=== PATIENT | female | born 1950 | race Caucasian/White ===

== ENCOUNTER 2017-05-09 10:04 | Outpatient (CLI) | payer MEDICARE, OTHER ==
[2017-05-09 11:21] LABS: ALT (SGPT) 14 U/L (8-55); AST (SGOT) 27 U/L (5-34); Albumin 3.9 g/dL (3.4-4.8); Alkaline Phosphatase 71 U/L (40-150); Anion Gap 16 mmol/L (10-20); BUN (Urea Nitrogen) 14 mg/dL (9.8-20.1); Bilirubin, Total Less than 0.3 mg/dL (0.2-1.2); Calc. Creatinine Clearance 0 mL/min (70-130); Calcium 8.9 mg/dL (7.8-10.44); Carbon Dioxide 28 mmol/L (23-31); Cardiac Risk 3.2 (Less than 4.5); Chloride 97 mmol/L (98-107); Cholesterol 182 mg/dl (< 200 Desired); Estimated GFR-MDRD 53; Globulin 3.3 g/dL (2.4-3.5); Glucose 103 mg/dL (80-115); HDL Cholesterol 57 mg/dL (>60 Neg Risk); LDL Cholesterol, Calculated 105 mg/dL; Potassium 4.7 mmol/L (3.5-5.1); Protein, Total 7.2 g/dL (6.0-8.3); Sodium 136 mmol/L (136-145); Triglycerides 98 mg/dL (Less than 150)
[2017-05-09 11:30] LABS: #Basophils 0.2 thou/uL (0.0-0.2); #Eosinphils 0.1 thou/uL (0.0-0.7); #Lymphocytes 1.5 thou/uL (1.20-3.40); #Monocytes 0.7 thou/uL (0.11-0.59); #Neutrophils 5.8 thou/uL (1.40-6.50); %Basophils 2.4 % (0.0-1.0); %Eosinophils 1.1 % (0.0-10.0); %Lymphocytes 18.1 % (21.0-51.0); %Monocytes 8.2 % (0.0-10.0); %Neutrophils 70.2 % (42.0-75.0); Hemoglobin 9.2 g/dL (12.0-16.0); Mean Corpuscular HGB CONC 31.4 g/dL (32.0-36.0); Mean Corpuscular Hemoglobin 26.4 pg (27.0-31.0); Mean Corpuscular Volume 84.1 fl (81.0-99.0); Platelet Count 392 thou/uL (130-400); RBC Distribution Width 17.1 % (11.5-14.5); Red Blood Cell (RBC) Count 3.49 mill/uL (4.20-5.40); White Blood Cell (WBC) Count 8.3 thou/uL (4.8-10.8)
== END 2017-05-09 10:05 ==
LOC: MADLABBHPM 10:04
PROVIDERS: ATTEND Family Medicine
DX: I10 Essential (primary) hypertension (principal)
CPT/HCPCS: 36415; 80053; 80061; 85025

== ENCOUNTER 2017-06-17 13:37 | Emergency (ER) | payer MEDICARE, MEDICAID ==
[2017-06-17] MEDS ORDERED: Sterile Water 10 ML ONE (14:50)
[2017-06-17] MEDS ORDERED: methylPREDNISolone Sod Succ/PF 125 MG/2 ML VIAL ONE (14:50)
[2017-06-17] MEDS ORDERED: Dexamethasone 10 MG/ML VIAL ONE (14:50)
[2017-06-17] MEDS ORDERED: Ketorolac Tromethamine 30 MG/ML VIAL ONE (14:50)
[2017-06-17 15:43] LABS: #Basophils 0.1 thou/uL (0.0-0.2); #Eosinphils 0.1 thou/uL (0.0-0.7); #Lymphocytes 1.1 thou/uL (1.20-3.40); #Monocytes 0.8 thou/uL (0.11-0.59); #Neutrophils 6.2 thou/uL (1.40-6.50); %Basophils 0.9 % (0.0-1.0); %Eosinophils 0.6 % (0.0-10.0); %Lymphocytes 13.3 % (21.0-51.0); %Neutrophils 75.2 % (42.0-75.0); Anisocytosis SLIGHT = 6-15 cells (100X) (0-5/hpf); Hemoglobin 8.1 g/dL (12.0-16.0); MDiff Complete? YES; Mean Corpuscular HGB CONC 29.6 g/dL (32.0-36.0); Mean Corpuscular Hemoglobin 23.6 pg (27.0-31.0); Mean Corpuscular Volume 79.6 fl (81.0-99.0); Mean Platelet Volume 6.7 fL (7.4-10.4); Platelet Count 432 thou/uL (130-400); RBC Distribution Width 17.8 % (11.5-14.5); Red Blood Cell (RBC) Count 3.44 mill/uL (4.20-5.40); White Blood Cell (WBC) Count 8.3 thou/uL (4.8-10.8)
[2017-06-17 15:53] LABS: ALT (SGPT) 30 U/L (8-55); AST (SGOT) 44 U/L (5-34); Albumin 3.7 g/dL (3.4-4.8); Alkaline Phosphatase 96 U/L (40-150); Anion Gap 15 mmol/L (10-20); BUN (Urea Nitrogen) 11 mg/dL (9.8-20.1); Bilirubin, Total 0.3 mg/dL (0.2-1.2); Calc. Creatinine Clearance 0 mL/min (70-130); Calcium 8.8 mg/dL (7.8-10.44); Carbon Dioxide 29 mmol/L (23-31); Chloride 92 mmol/L (98-107); Estimated GFR-MDRD 52; Globulin 3.4 g/dL (2.4-3.5); Glucose 112 mg/dL (80-115); Potassium 4.1 mmol/L (3.5-5.1); Protein, Total 7.1 g/dL (6.0-8.3); Sodium 132 mmol/L (136-145)
[2017-06-17] MEDS ORDERED: Furosemide 40 MG/4 ML VIAL ONE (17:09)
--- NOTE | 2017-06-17 17:14 | RAD ---
FRONTAL RADIOGRAPH CHEST FOUR VIEWS RIGHT RIBS: Date: 06-17-17 Comparison: 09-27-16 History: Fall, right sided pain. FINDINGS: There is corticated contour irregularity involving the right humeral neck at the base of the right h umeral head suggesting a healed fracture. Clinical correlation required. Frontal imaging demonstrate s no pneumothorax, lobar consolidation, or alveolar edema. Blunting of the costophrenic angle sugges ts bilateral small pleural effusions and/or pleural thickening, right greater than left. Four views of the right ribs are limited secondary to respiratory motion artifact. There is an age i ndeterminate lateral right sided 9th rib fracture, felt to most likely be old. Similar age indetermi jacki lateral right sided 7th rib fracture seen. IMPRESSION: Age indeterminate, possibly chronic lateral right sided 7th and 9th rib fractures. Subtle acute frac tures cannot be fully excluded. No pneumothorax is seen. Small bilateral pleural effusions are suspe cted, right greater than left. POS: [facility]
[2017-06-17 18:18] LABS: INR-International Normal Ratio 1.2; Prothrombin Time 15.6 SEC (12.0-14.7)
[2017-06-17 18:19] LABS: PTT 30.4 SEC (22.9-36.1)
[2017-06-17 18:41] LABS: CKMB 4.9 ng/mL (0-6.6)
== END 2017-06-17 21:23 | disposition short-term general hospital (02) ==
LOC: MERGE 13:37 → MADERS 13:37
DX: I11.0 Hypertensive heart disease with heart failure (principal); I50.9 Heart failure, unspecified; J44.9 Chronic obstructive pulmonary disease, unspecified; E78.4 Other hyperlipidemia; F41.9 Anxiety disorder, unspecified; F17.210 Nicotine dependence, cigarettes, uncomplicated; Z79.82 Long term (current) use of aspirin; Z79.899 Other long term (current) drug therapy; Z86.73 Personal history of transient ischemic attack (TIA), and cerebral infarction without residual deficits
CPT/HCPCS: 36415; 51702; 80053; 82553; 83880; 84484; 85025; 85610; 85730; 93005; 94640; 94760; 96374; 96375; A4216; J1100; J1885; J1940; J2930; J7620

== ENCOUNTER 2018-03-27 08:17 | Outpatient (CLI) | payer MEDICARE, MEDICAID ==
[2018-03-27 09:39] LABS: #Basophils 0.1 thou/uL (0.0-0.2); #Eosinphils 0.1 thou/uL (0.0-0.7); #Lymphocytes 1.8 thou/uL (1.20-3.40); #Monocytes 1.2 thou/uL (0.11-0.59); #Neutrophils 7.6 thou/uL (1.40-6.50); %Basophils 1.1 % (0.0-1.0); %Eosinophils 0.9 % (0.0-10.0); %Lymphocytes 16.5 % (21.0-51.0); %Monocytes 11.5 % (0.0-10.0); %Neutrophils 70.1 % (42.0-75.0); Hemoglobin 8.3 g/dL (12.0-16.0); Mean Corpuscular HGB CONC 29.7 g/dL (32.0-36.0); Mean Corpuscular Hemoglobin 24.5 pg (27.0-31.0); Mean Corpuscular Volume 82.5 fl (81.0-99.0); Mean Platelet Volume 6.4 fL (7.4-10.4); Platelet Count 418 thou/uL (130-400); RBC Distribution Width 15.8 % (11.5-14.5); Red Blood Cell (RBC) Count 3.39 mill/uL (4.20-5.40); White Blood Cell (WBC) Count 10.8 thou/uL (4.8-10.8)
[2018-03-27 09:48] LABS: Anion Gap 16 mmol/L (10-20); BUN (Urea Nitrogen) 26 mg/dL (9.8-20.1); Calc. Creatinine Clearance 0 mL/min (70-130); Calcium 9.2 mg/dL (7.8-10.44); Carbon Dioxide 27 mmol/L (23-31); Cardiac Risk 2.1 (Less than 4.5); Chloride 95 mmol/L (98-107); Cholesterol 163 mg/dl (< 200 Desired); Estimated GFR-MDRD 32; Glucose 103 mg/dL (80-115); HDL Cholesterol 76 mg/dL (>60 Neg Risk); LDL Cholesterol, Calculated 76 mg/dL; Potassium 4.6 mmol/L (3.5-5.1); Sodium 133 mmol/L (136-145); Triglycerides 53 mg/dL (Less than 150)
[2018-03-27 10:13] LABS: Anisocytosis MODERATE=16-30 cells (100X) (0-5/hpf); Hypochromia SLIGHT = 6-15 cells (100X) (0-5/hpf)
[2018-03-27 10:17] LABS: PLT Morphology Comment Appears Adequate
== END 2018-03-27 08:18 | disposition home or self-care (01) ==
LOC: MADLABBHPM 08:17
PROVIDERS: ATTEND Family Medicine
DX: E78.5 Hyperlipidemia, unspecified (principal); N28.9 Disorder of kidney and ureter, unspecified; D63.8 Anemia in other chronic diseases classified elsewhere; F17.200 Nicotine dependence, unspecified, uncomplicated
CPT/HCPCS: 36415; 80048; 80061; 85025

== ENCOUNTER 2019-09-18 16:38 | Emergency (ER) | payer MEDICARE, MEDICAID ==
[2019-09-18] MEDS ORDERED: Sodium Chloride 0.9% 500 ML ONE (17:02)
[2019-09-18 17:14] LABS: #Basophils 0.1 thou/uL (0.0-0.2); #Eosinphils 0.1 thou/uL (0.0-0.7); #Lymphocytes 1.8 thou/uL (1.20-3.40); #Monocytes 1.2 thou/uL (0.11-0.59); #Neutrophils 5.9 thou/uL (1.40-6.50); %Lymphocytes 19.6 % (21.0-51.0); %Neutrophils 65.5 % (42.0-75.0); Hemoglobin 10.1 g/dL (12.0-16.0); Mean Corpuscular Hemoglobin 29.2 pg (27.0-31.0); Mean Corpuscular Volume 100.6 fL (78.0-98.0); Mean Platelet Volume 7.6 fL (7.4-10.4); Platelet Count 324 thou/uL (130-400); Red Blood Cell (RBC) Count 3.45 mill/uL (4.20-5.40)
[2019-09-18 17:19] LABS: INR-International Normal Ratio 0.8; PTT 27.6 SEC (22.9-36.1); Prothrombin Time 11.5 SEC (12.0-14.7)
[2019-09-18 17:28] LABS: ALT (SGPT) 16 U/L (8-55); AST (SGOT) 25 U/L (5-34); Albumin 4.4 g/dL (3.4-4.8); Alkaline Phosphatase 60 U/L (40-110); Anion Gap 20 mmol/L (10-20); BUN (Urea Nitrogen) 34 mg/dL (9.8-20.1); Bilirubin, Total 0.2 mg/dL (0.2-1.2); Calc. Creatinine Clearance 0 mL/min (70-130); Calcium 9.8 mg/dL (7.8-10.44); Carbon Dioxide 34 mmol/L (23-31); Chloride 91 mmol/L (98-107); Estimated GFR-MDRD 33; Globulin 2.6 g/dL (2.4-3.5); Glucose 91 mg/dL (83-110); Potassium 5.3 mmol/L (3.5-5.1); Sodium 140 mmol/L (136-145)
--- NOTE | 2019-09-18 17:34 | RAD ---
EXAM: CHEST ONE VIEW HISTORY: Atrial fibrillation with RVR. COMPARISON: 06/17/2017 FINDINGS: Cardiac silhouette is magnified by projection. Pulmonary vasculature is within normal limits. Hazy de nsity is seen at the left lung base probably related to overlying soft tissue density. The pleural-based density at the right lung base on the prior study is not seen on today's exam. No conso lidation is seen. Vascular calcifications are again seen in the thoracic aorta. Remote fracture involving the right proximal humerus is seen. IMPRESSION: No acute cardiopulmonary process.
== END 2019-09-18 18:23 | disposition short-term general hospital (02) ==
LOC: MADERS 16:38
DX: I48.91 Unspecified atrial fibrillation (principal); I10 Essential (primary) hypertension; E78.5 Hyperlipidemia, unspecified; J44.9 Chronic obstructive pulmonary disease, unspecified; Z86.73 Personal history of transient ischemic attack (TIA), and cerebral infarction without residual deficits; D64.9 Anemia, unspecified; F41.9 Anxiety disorder, unspecified; F17.210 Nicotine dependence, cigarettes, uncomplicated; Z79.899 Other long term (current) drug therapy; Z79.82 Long term (current) use of aspirin; Z79.51 Long term (current) use of inhaled steroids
CPT/HCPCS: 71045; 80053; 83880; 84443; 84484; 85025; 85610; 85730; 93005; 96361; 96374; J7050

== ENCOUNTER 2019-10-07 16:16 | Inpatient (IN) | payer MEDICARE, OTHER ==
[2019-10-07] MEDS ORDERED: Albuterol Sulfate 1.25 MG/3 ML NEB NEB PRN (17:47)
[2019-10-07] MEDS ORDERED: Acetaminophen 325 MG TAB PO PRN (17:47)
[2019-10-07] MEDS: Atorvastatin Calcium 10 MG TAB PO SCH (20:31)
[2019-10-07] MEDS: Mometasone/Formoterol 60 PUFF AER INH SCH (20:31)
[2019-10-07] MEDS: Magnesium Oxide 400 MG TAB PO SCH (20:31)
[2019-10-08 05:34] LABS: Hemoglobin 7.4 g/dL (12.0-16.0); Platelet Count 336 thou/uL (130-400)
[2019-10-08] MEDS: Aspirin 81 mg Enteric Coated Tablet PO SCH (08:28)
[2019-10-08] MEDS: Dronedarone HCl 400 MG TAB PO SCH ×2 (08:28→17:05)
[2019-10-08] MEDS: Magnesium Oxide 400 MG TAB PO SCH ×2 (08:29→20:51)
[2019-10-08] MEDS: Gabapentin 300 MG CAP PO SCH (08:30)
[2019-10-08] MEDS: Mometasone/Formoterol 60 PUFF AER INH SCH ×2 (08:30→20:51)
[2019-10-08] MEDS ORDERED: Docusate 100 MG CAP PO PRN (13:09)
[2019-10-08] MEDS ORDERED: Rivaroxaban 10 MG TAB PO SCH (17:00)
[2019-10-08] MEDS: Ferrous Sulfate 325 MG TAB PO SCH (17:05)
--- NOTE | 2019-10-08 19:21 | HP ---
PRIMARY CARE PHYSICIAN: Gloria Forde MD HISTORY OF PRESENT ILLNESS: The patient is a 69-year-old female with history of COPD, on chronic O2; chronic atrial fibrillation; chronic kidney disease, stage 3; tobacco abuse; who was recently discharged from [facility] in [place], [place] for atrial fibrillation with rapid ventricular response. Regarding the patient's atrial fibrillation, this required cardioversion x2 as well as Multaq and anticoagulation with Xarelto. The patient was seen by both Cardiology and EP while in the hospital. The patient was cardioverted in the last approximately 48 hours prior to discharge. From a cardiac stand point, she remains stable prior to discharge. The patient's main complaint was profound generalized weakness and that continues to be the patient's main symptom currently. REVIEW OF SYMPTOMS: GENERAL: The patient reports generalized weakness. HEENT: The patient denies vision changes or eye pain. CARDIOVASCULAR: The patient denies chest pain or palpitations. RESPIRATORY: The patient reports shortness of breath with exertion. ABDOMEN: The patient denies nausea, vomiting, or diarrhea. GENITOURINARY: The patient denies dysuria or hematuria. MUSCULOSKELETAL: The patient denies muscle pain, but does report weakness. PSYCHIATRIC: The patient denies anxiety or depression. NEUROLOGIC: The patient reports occasional headache and occasional tremors. SKIN: The patient reports redness of right upper extremity. PAST MEDICAL HISTORY: 1. COPD. 2. Chronic atrial fibrillation. 3. Chronic diastolic heart failure. 4. Tobacco abuse. 5. Hypertension. 6. Hyperlipidemia. PAST SURGICAL HISTORY: 1. Bilateral carotid endarterectomy. 2. Tonsillectomy with adenoidectomy. 3. Bladder surgery. ALLERGIES: NO KNOWN DRUG ALLERGIES. SOCIAL HISTORY: She has a significant tobacco abuse history. Denies alcohol or drug use. FAMILY HISTORY: Significant for diabetes in her mother. MEDICATIONS: 1. Ventolin HFA one puff q.4 hours p.r.n. 2. Albuterol nebulization one neb every 6 hours p.r.n. 3. Advair 100/50 one inhalation b.i.d. 4. Pravastatin 40 mg p.o. nightly. 5. Zoloft 150 mg p.o. daily. 6. Acetaminophen 650 mg p.o. q.4 hours p.r.n. for pain. 7. Aspirin 81 mg p.o. daily. 8. Diltiazem 240 mg p.o. daily. 9. Multaq 400 mg p.o. b.i.d. 10. Gabapentin 300 mg p.o. daily. 11. DuoNeb 3 mL inhalation q.6 hours p.r.n. for shortness of breath. 12. Magnesium oxide 400 mg p.o. b.i.d. 13. Xarelto 15 mg daily. 14. Incruse Ellipta 62.5 mcg inhalation one puff daily. PHYSICAL EXAMINATION: VITAL SIGNS: Temperature 97.4, pulse 84, blood pressure 140/74, respirations 20 , oxygen saturation 90% on 3 L. GENERAL: The patient is alert and oriented x3, in no current distress. The patient is very frail and cachectic in appearance. HEENT: Extraocular muscles are intact. Conjunctivae and sclerae are clear. CARDIOVASCULAR: Irregularly irregular rhythm with normal rate. Normal S1 and S2. LUNGS: Diffusely diminished breath sounds on posterior lung cantu. Mild wheezes in anterior lung cantu heard. No use of accessory muscles of respiration. EXTREMITIES: No clubbing, cyanosis, or edema. NEUROLOGIC: Cranial nerves 2 through 12 are intact grossly. SKIN: Slightly warm. There is an approximately 7 cm area of increased warmth, induration on the anterior surface of the patient's right forearm with increased warmth. No fluctuance noted. LABORATORY STUDIES: Hemoglobin 7.4, hematocrit 24.8. ASSESSMENT AND PLAN: 1. Generalized weakness. The patient is [facility] for physical therapy and occupational therapy, which she will be getting daily as she is able to tolerate. 2. Chronic atrial fibrillation. Rate controlled. We will continue Xarelto at this time pending fecal occult blood testing. The patient has mildly worsening anemia that maybe related to gastrointestinal losses. Long discussion had with the patient regarding risks and benefits of continued anticoagulation treatment versus discontinuing anticoagulation. We will discuss further pending result of gastric occult blood testing. We will initiate followup with both Cardiology and assistant drafter. 3. Iron deficiency anemia, see above. We will also add on supplemental iron and Colace. 4. Chronic obstructive pulmonary disease. We will continue the patient's breathing treatments, and chronic supplemental oxygen restarted as well. 5. Chronic kidney disease, stage 3. This appears to be stable. We will continue to monitor. We will avoid nephrotoxic medications. 6. Right upper extremity superficial thrombophlebitis. We will continue anticoagulation. We will also add on ice packs to decrease inflammation. 7. Anxiety/depression. Continue the patient's Zoloft. Job ID: [id number] MTDD
[2019-10-08] MEDS: Atorvastatin Calcium 10 MG TAB PO SCH (20:51)
[2019-10-08] MEDS ORDERED: Mupirocin 2% Ointment 22 GM Tube TOP SCH (23:15)
[2019-10-09] MEDS: Aspirin 81 mg Enteric Coated Tablet PO SCH (08:39)
[2019-10-09] MEDS: Gabapentin 300 MG CAP PO SCH (08:39)
[2019-10-09] MEDS: Dronedarone HCl 400 MG TAB PO SCH ×2 (08:39→16:52)
[2019-10-09] MEDS: Magnesium Oxide 400 MG TAB PO SCH ×2 (08:39→20:41)
[2019-10-09] MEDS: Ferrous Sulfate 325 MG TAB PO SCH ×2 (08:39→16:51)
[2019-10-09] MEDS: Mupirocin 2% Ointment 22 GM Tube TOP SCH (08:40)
[2019-10-09] MEDS: Mometasone/Formoterol 60 PUFF AER INH SCH ×2 (08:40→20:41)
[2019-10-09] MEDS ORDERED: Mupirocin 2% Ointment 22 GM Tube TOP SCH (09:00)
[2019-10-09 13:32] LABS: Hemoglobin 7.6 g/dL (12.0-16.0); Platelet Count 329 thou/uL (130-400)
[2019-10-09] MEDS: Atorvastatin Calcium 10 MG TAB PO SCH (20:41)
[2019-10-10] MEDS: Dronedarone HCl 400 MG TAB PO SCH ×2 (08:19→16:31)
[2019-10-10] MEDS: Aspirin 81 mg Enteric Coated Tablet PO SCH (08:19)
[2019-10-10] MEDS: Gabapentin 300 MG CAP PO SCH (08:19)
[2019-10-10] MEDS: Ferrous Sulfate 325 MG TAB PO SCH ×2 (08:19→16:31)
[2019-10-10] MEDS: Magnesium Oxide 400 MG TAB PO SCH ×2 (08:19→20:20)
[2019-10-10] MEDS: Mometasone/Formoterol 60 PUFF AER INH SCH ×2 (08:20→20:21)
[2019-10-10] MEDS: Mupirocin 2% Ointment 22 GM Tube TOP SCH (08:20)
[2019-10-10] MEDS: Atorvastatin Calcium 10 MG TAB PO SCH (20:21)
[2019-10-11 05:41] LABS: Platelet Count 314 thou/uL (130-400)
[2019-10-11] MEDS: Ferrous Sulfate 325 MG TAB PO SCH ×2 (08:45→17:09)
[2019-10-11] MEDS: Dronedarone HCl 400 MG TAB PO SCH ×2 (08:46→17:09)
[2019-10-11] MEDS: Gabapentin 300 MG CAP PO SCH (08:47)
[2019-10-11] MEDS: Aspirin 81 mg Enteric Coated Tablet PO SCH (08:47)
[2019-10-11] MEDS: Magnesium Oxide 400 MG TAB PO SCH ×2 (08:48→21:20)
[2019-10-11] MEDS: Mometasone/Formoterol 60 PUFF AER INH SCH ×2 (08:53→21:20)
[2019-10-11] MEDS: Mupirocin 2% Ointment 22 GM Tube TOP SCH (08:53)
[2019-10-11 18:26] LABS: Bilirubin Negative (Negative); Blood, Urine Negative (Negative); Glucose, Urine (Dipstick) Negative (Negative); Leukocyte Trace (Negative); Nitrite Negative (Negative); Protein, Urine (Dipstick) Negative (Neg-Trace)
[2019-10-11 18:31] LABS: Clarity Hazy (Clear)
[2019-10-11 18:38] LABS: RBC/HPF 0-3 HPF (0-3)
[2019-10-11 18:39] LABS: Bacteria/HPF 3+ HPF (None Seen); Squamous Epithelial 0-3 HPF (0-3)
[2019-10-11] MEDS: Atorvastatin Calcium 10 MG TAB PO SCH (21:20)
[2019-10-12] MEDS: Magnesium Oxide 400 MG TAB PO SCH ×2 (08:18→21:04)
[2019-10-12] MEDS: Aspirin 81 mg Enteric Coated Tablet PO SCH (08:18)
[2019-10-12] MEDS: Gabapentin 300 MG CAP PO SCH (08:18)
[2019-10-12] MEDS: Dronedarone HCl 400 MG TAB PO SCH ×2 (08:26→17:01)
[2019-10-12] MEDS: Ferrous Sulfate 325 MG TAB PO SCH ×2 (08:26→17:01)
[2019-10-12] MEDS: Mometasone/Formoterol 60 PUFF AER INH SCH ×2 (08:27→21:04)
[2019-10-12] MEDS: Mupirocin 2% Ointment 22 GM Tube TOP SCH (08:28)
[2019-10-12] MEDS: Nitrofurantoin Macrocrystal 50 MG CAP PO SCH ×2 (08:35→21:04)
[2019-10-12] MEDS: Atorvastatin Calcium 10 MG TAB PO SCH (21:03)
[2019-10-13] MEDS: Ferrous Sulfate 325 MG TAB PO SCH ×2 (08:28→16:43)
[2019-10-13] MEDS: Dronedarone HCl 400 MG TAB PO SCH ×2 (08:28→16:43)
[2019-10-13] MEDS: Nitrofurantoin Macrocrystal 50 MG CAP PO SCH ×2 (08:28→20:43)
[2019-10-13] MEDS: Gabapentin 300 MG CAP PO SCH (08:28)
[2019-10-13] MEDS: Aspirin 81 mg Enteric Coated Tablet PO SCH (08:28)
[2019-10-13] MEDS: Magnesium Oxide 400 MG TAB PO SCH ×2 (08:28→20:44)
[2019-10-13] MEDS: Mupirocin 2% Ointment 22 GM Tube TOP SCH (08:29)
[2019-10-13] MEDS: Mometasone/Formoterol 60 PUFF AER INH SCH ×2 (08:29→20:43)
[2019-10-13] MEDS: Simethicone Chewable 80 MG TAB PO PRN (17:38)
[2019-10-13] MEDS: Atorvastatin Calcium 10 MG TAB PO SCH (20:44)
[2019-10-14] MEDS: Dronedarone HCl 400 MG TAB PO SCH ×2 (08:34→16:54)
[2019-10-14] MEDS: Mometasone/Formoterol 60 PUFF AER INH SCH ×2 (08:34→20:53)
[2019-10-14] MEDS: Mupirocin 2% Ointment 22 GM Tube TOP SCH (08:35)
[2019-10-14] MEDS: Aspirin 81 mg Enteric Coated Tablet PO SCH (08:35)
[2019-10-14] MEDS: Ferrous Sulfate 325 MG TAB PO SCH ×2 (08:35→16:54)
[2019-10-14] MEDS: Nitrofurantoin Macrocrystal 50 MG CAP PO SCH ×2 (08:35→20:55)
[2019-10-14] MEDS: Gabapentin 300 MG CAP PO SCH (08:35)
[2019-10-14] MEDS: Magnesium Oxide 400 MG TAB PO SCH ×2 (08:35→20:55)
[2019-10-14] MEDS: Atorvastatin Calcium 10 MG TAB PO SCH (20:55)
[2019-10-14] MEDS: Simethicone Chewable 80 MG TAB PO PRN (20:57)
[2019-10-15 08:22] LABS: Hemoglobin 7.7 g/dL (12.0-16.0)
[2019-10-15] MEDS: Nitrofurantoin Macrocrystal 50 MG CAP PO SCH ×2 (09:53→21:26)
[2019-10-15] MEDS: Dronedarone HCl 400 MG TAB PO SCH ×2 (09:55→18:21)
[2019-10-15] MEDS: Gabapentin 300 MG CAP PO SCH (09:55)
[2019-10-15] MEDS: Magnesium Oxide 400 MG TAB PO SCH ×2 (09:55→21:18)
[2019-10-15] MEDS: Aspirin 81 mg Enteric Coated Tablet PO SCH (09:55)
[2019-10-15] MEDS: Ferrous Sulfate 325 MG TAB PO SCH ×2 (09:55→18:21)
[2019-10-15] MEDS: Mometasone/Formoterol 60 PUFF AER INH SCH ×2 (09:55→21:18)
--- NOTE | 2019-10-15 13:45 | PRG ---
DATE OF SERVICE: 10/15/2019 PRIMARY DIAGNOSES: 1. Chronic atrial fibrillation. 2. Generalized weakness. 3. Chronic obstructive pulmonary disease. 4. Chronic hypoxic respiratory failure. 5. Chronic kidney disease, stage 3. 6. Iron deficiency anemia. 7. Tobacco abuse. 8. Hypertension. 9. Hyperlipidemia. 10. Chronic diastolic heart failure. 11. Urinary tract infection. The patient is a 69-year-old female with recent acute care discharge for atrial fibrillation. The patient was discharged to [facility] for rehab. The patient is undergoing physical therapy and occupational therapy in a routine fashion and was stable from a cardiopulmonary standpoint up until day of discharge when the patient complained of shortness of breath and lightheadedness shortly after coming back from rehab. The patient's pulse was noted to be in the 140s. Oxygen level at the time of initial evaluation by the patient's nurse was in the mid 80s; however, oxygen was not turned on at that time. Oxygen was then turned on and oxygen level darlene to 93% on 3 L, which is near the patient's baseline. At the time of my evaluation, the patient's oxygen level was in the 90s; however, pulse remained in the 120s to 140s. She denies shortness of breath, chest pain or palpitations, but did report continued lightheadedness. Xarelto was discontinued during the patient's hospitalization after an episode of PHYSICAL EXAMINATION: VITAL SIGNS: Blood pressure 110/57, oxygen 93% on 3.5 L, pulse 120s to 140s, respiratory rate 18. GENERAL: The patient is alert and oriented x3, in no distress at this time. HEENT: Extraocular muscles are intact. Conjunctivae and sclerae are clear. CARDIOVASCULAR: Irregularly irregular rate and rhythm with tachycardia. No murmurs, rubs, or gallops. LUNGS: Breath sounds diffusely diminished; however, it is stable compared to prior examinations. No use of accessory muscles noted. EXTREMITIES: No cyanosis, edema, or erythema. NEUROLOGIC: Cranial nerves 2 through 12 intact grossly. PSYCHIATRIC: Appropriate mood and affect. Assessment and Plan. 1. Atrial Fibrillation with Rapid Ventricular rate - will transfer to ED for further stabilization with possible transfer to [place] for cardiology consultation. 2. COPD - continue supplemental O2; inhalers/nebulized medications. 3. CKD stage III - stable. 4. Hypertension - stable; continue antihypertensive regimen. 5. UTI - resolved. MTDD
[2019-10-15] MEDS ORDERED: Albuterol Sulfate 1.25 MG/3 ML NEB NEB PRN (20:17)
[2019-10-15] MEDS ORDERED: Docusate 100 MG CAP PO PRN (20:19)
[2019-10-15] MEDS: Atorvastatin Calcium 10 MG TAB PO SCH (21:18)
[2019-10-15] MEDS ORDERED: Nitrofurantoin Macrocrystal 50 MG CAP PO SCH (21:30)
[2019-10-16] MEDS: Nitrofurantoin Macrocrystal 50 MG CAP PO SCH ×2 (08:43→20:03)
[2019-10-16] MEDS: Ferrous Sulfate 325 MG TAB PO SCH ×2 (08:43→16:51)
[2019-10-16] MEDS: Dronedarone HCl 400 MG TAB PO SCH ×2 (08:44→16:51)
[2019-10-16] MEDS: Magnesium Oxide 400 MG TAB PO SCH ×2 (08:44→20:04)
[2019-10-16] MEDS: Gabapentin 300 MG CAP PO SCH (08:44)
[2019-10-16] MEDS: Aspirin 81 mg Enteric Coated Tablet PO SCH (08:44)
[2019-10-16] MEDS: Mometasone/Formoterol 60 PUFF AER INH SCH ×2 (08:45→20:02)
[2019-10-16] MEDS: Mupirocin 2% Ointment 22 GM Tube TOP SCH (08:46)
[2019-10-16] MEDS ORDERED: Rivaroxaban 10 MG TAB PO SCH (17:00)
[2019-10-16] MEDS: Atorvastatin Calcium 10 MG TAB PO SCH (20:04)
[2019-10-17] MEDS: Mometasone/Formoterol 60 PUFF AER INH SCH ×2 (08:55→20:44)
[2019-10-17] MEDS: Aspirin 81 mg Enteric Coated Tablet PO SCH (08:57)
[2019-10-17] MEDS: Mupirocin 2% Ointment 22 GM Tube TOP SCH (08:57)
[2019-10-17] MEDS: Dronedarone HCl 400 MG TAB PO SCH ×2 (08:58→16:34)
[2019-10-17] MEDS: Magnesium Oxide 400 MG TAB PO SCH ×2 (08:58→20:44)
[2019-10-17] MEDS: Ferrous Sulfate 325 MG TAB PO SCH ×2 (08:58→16:34)
[2019-10-17] MEDS: Gabapentin 300 MG CAP PO SCH (08:58)
[2019-10-17] MEDS: Atorvastatin Calcium 10 MG TAB PO SCH (20:44)
[2019-10-18] MEDS: Mometasone/Formoterol 60 PUFF AER INH SCH ×2 (08:40→19:32)
[2019-10-18] MEDS: Magnesium Oxide 400 MG TAB PO SCH ×2 (08:41→20:48)
[2019-10-18] MEDS: Aspirin 81 mg Enteric Coated Tablet PO SCH (08:41)
[2019-10-18] MEDS: Dronedarone HCl 400 MG TAB PO SCH ×2 (08:42→16:36)
[2019-10-18] MEDS: Mupirocin 2% Ointment 22 GM Tube TOP SCH (08:42)
[2019-10-18] MEDS: Gabapentin 300 MG CAP PO SCH (08:42)
[2019-10-18] MEDS: Ferrous Sulfate 325 MG TAB PO SCH ×2 (08:42→16:36)
[2019-10-18] MEDS: Simethicone Chewable 80 MG TAB PO PRN (16:35)
[2019-10-18] MEDS: Atorvastatin Calcium 10 MG TAB PO SCH (20:47)
[2019-10-19] MEDS: Mometasone/Formoterol 60 PUFF AER INH SCH ×2 (07:32→20:05)
[2019-10-19] MEDS: Gabapentin 300 MG CAP PO SCH (08:33)
[2019-10-19] MEDS: Magnesium Oxide 400 MG TAB PO SCH ×2 (08:34→20:06)
[2019-10-19] MEDS: Aspirin 81 mg Enteric Coated Tablet PO SCH (08:34)
[2019-10-19] MEDS: Ferrous Sulfate 325 MG TAB PO SCH ×2 (08:34→17:09)
[2019-10-19] MEDS: Mupirocin 2% Ointment 22 GM Tube TOP SCH (08:35)
[2019-10-19] MEDS: Dronedarone HCl 400 MG TAB PO SCH ×2 (08:35→17:09)
[2019-10-19] MEDS: Atorvastatin Calcium 10 MG TAB PO SCH (20:06)
[2019-10-19] MEDS: Simethicone Chewable 80 MG TAB PO PRN (20:11)
[2019-10-20] MEDS: Mometasone/Formoterol 60 PUFF AER INH SCH ×2 (07:53→19:06)
[2019-10-20] MEDS: Dronedarone HCl 400 MG TAB PO SCH ×2 (08:57→16:51)
[2019-10-20] MEDS: Ferrous Sulfate 325 MG TAB PO SCH ×2 (08:59→16:51)
[2019-10-20] MEDS: Aspirin 81 mg Enteric Coated Tablet PO SCH (08:59)
[2019-10-20] MEDS: Gabapentin 300 MG CAP PO SCH (08:59)
[2019-10-20] MEDS: Magnesium Oxide 400 MG TAB PO SCH ×2 (08:59→20:16)
[2019-10-20] MEDS: Mupirocin 2% Ointment 22 GM Tube TOP SCH (08:59)
[2019-10-20] MEDS: Simethicone Chewable 80 MG TAB PO PRN (14:12)
[2019-10-20] MEDS: Atorvastatin Calcium 10 MG TAB PO SCH (20:16)
[2019-10-21] MEDS: Mometasone/Formoterol 60 PUFF AER INH SCH ×2 (07:41→20:30)
[2019-10-21] MEDS: Magnesium Oxide 400 MG TAB PO SCH ×2 (08:27→20:31)
[2019-10-21] MEDS: Ferrous Sulfate 325 MG TAB PO SCH ×2 (08:28→17:08)
[2019-10-21] MEDS: Gabapentin 300 MG CAP PO SCH (08:28)
[2019-10-21] MEDS: Aspirin 81 mg Enteric Coated Tablet PO SCH (08:28)
[2019-10-21] MEDS: Mupirocin 2% Ointment 22 GM Tube TOP SCH (08:29)
[2019-10-21] MEDS: Dronedarone HCl 400 MG TAB PO SCH ×2 (08:29→17:09)
[2019-10-21] MEDS: Atorvastatin Calcium 10 MG TAB PO SCH (20:31)
[2019-10-21] MEDS: Simethicone Chewable 80 MG TAB PO PRN (20:35)
[2019-10-22 05:23] LABS: Hemoglobin 7.7 g/dL (12.0-16.0)
[2019-10-22] MEDS: Mometasone/Formoterol 60 PUFF AER INH SCH ×2 (07:30→19:04)
[2019-10-22] MEDS: Aspirin 81 mg Enteric Coated Tablet PO SCH (08:36)
[2019-10-22] MEDS: Magnesium Oxide 400 MG TAB PO SCH ×2 (08:36→20:18)
[2019-10-22] MEDS: Ferrous Sulfate 325 MG TAB PO SCH ×2 (08:36→17:02)
[2019-10-22] MEDS: Dronedarone HCl 400 MG TAB PO SCH ×2 (08:36→17:02)
[2019-10-22] MEDS: Gabapentin 300 MG CAP PO SCH (08:36)
[2019-10-22] MEDS ORDERED: Furosemide 40 MG/4 ML VIAL SLOW IVP SCH (13:30)
[2019-10-22] MEDS ORDERED: Furosemide 40 MG/4 ML VIAL IVP SCH (14:15)
[2019-10-22] MEDS: Atorvastatin Calcium 10 MG TAB PO SCH (20:18)
[2019-10-23 05:34] LABS: Hemoglobin 9.1 g/dL (12.0-16.0)
[2019-10-23] MEDS: Mometasone/Formoterol 60 PUFF AER INH SCH ×2 (07:30→19:48)
[2019-10-23] MEDS: Gabapentin 300 MG CAP PO SCH (08:31)
[2019-10-23] MEDS: Ferrous Sulfate 325 MG TAB PO SCH ×2 (08:31→17:06)
[2019-10-23] MEDS: Aspirin 81 mg Enteric Coated Tablet PO SCH (08:31)
[2019-10-23] MEDS: Magnesium Oxide 400 MG TAB PO SCH ×2 (08:31→20:03)
[2019-10-23] MEDS: Dronedarone HCl 400 MG TAB PO SCH ×2 (08:32→17:06)
[2019-10-23] MEDS: Atorvastatin Calcium 10 MG TAB PO SCH (20:03)
[2019-10-24] MEDS: Mometasone/Formoterol 60 PUFF AER INH SCH ×2 (07:30→20:16)
[2019-10-24] MEDS: Gabapentin 300 MG CAP PO SCH (08:25)
[2019-10-24] MEDS: Aspirin 81 mg Enteric Coated Tablet PO SCH (08:25)
[2019-10-24] MEDS: Dronedarone HCl 400 MG TAB PO SCH ×2 (08:26→17:14)
[2019-10-24] MEDS: Ferrous Sulfate 325 MG TAB PO SCH ×2 (08:26→17:14)
[2019-10-24] MEDS: Magnesium Oxide 400 MG TAB PO SCH ×2 (08:26→20:18)
[2019-10-24] MEDS: Atorvastatin Calcium 10 MG TAB PO SCH (20:18)
[2019-10-25] MEDS: Ferrous Sulfate 325 MG TAB PO SCH ×2 (08:09→16:17)
[2019-10-25] MEDS: Dronedarone HCl 400 MG TAB PO SCH (08:09)
[2019-10-25] MEDS: Mometasone/Formoterol 60 PUFF AER INH SCH ×2 (08:09→21:28)
[2019-10-25] MEDS: Aspirin 81 mg Enteric Coated Tablet PO SCH (08:10)
[2019-10-25] MEDS: Magnesium Oxide 400 MG TAB PO SCH ×2 (08:12→21:27)
[2019-10-25] MEDS: Gabapentin 300 MG CAP PO SCH (08:12)
[2019-10-25] MEDS ORDERED: Digoxin 0.25 MG TAB PO SCH (15:15)
[2019-10-25] MEDS: Apixaban 5 MG TAB PO SCH (21:27)
[2019-10-25] MEDS: Atorvastatin Calcium 10 MG TAB PO SCH (21:27)
[2019-10-26] MEDS: Ferrous Sulfate 325 MG TAB PO SCH ×2 (08:19→17:41)
[2019-10-26] MEDS ORDERED: Digoxin 0.125 MG TAB PO SCH (09:00)
[2019-10-26] MEDS ORDERED: Digoxin 0.25 MG TAB PO SCH (09:00)
[2019-10-26] MEDS: Apixaban 5 MG TAB PO SCH ×2 (09:07→21:50)
[2019-10-26] MEDS: Aspirin 81 mg Enteric Coated Tablet PO SCH (09:08)
[2019-10-26] MEDS: Mometasone/Formoterol 60 PUFF AER INH SCH ×2 (09:12→21:47)
[2019-10-26] MEDS: Magnesium Oxide 400 MG TAB PO SCH ×2 (09:12→21:50)
[2019-10-26] MEDS: Gabapentin 300 MG CAP PO SCH (09:12)
[2019-10-26] MEDS: Atorvastatin Calcium 10 MG TAB PO SCH (21:50)
[2019-10-27] MEDS: Mometasone/Formoterol 60 PUFF AER INH SCH ×2 (07:30→21:04)
[2019-10-27] MEDS: Ferrous Sulfate 325 MG TAB PO SCH ×2 (08:16→17:11)
[2019-10-27] MEDS: Magnesium Oxide 400 MG TAB PO SCH ×2 (08:16→21:06)
[2019-10-27] MEDS: Apixaban 5 MG TAB PO SCH ×2 (08:16→21:05)
[2019-10-27] MEDS: Aspirin 81 mg Enteric Coated Tablet PO SCH (08:16)
[2019-10-27] MEDS: Gabapentin 300 MG CAP PO SCH (08:16)
[2019-10-27] MEDS: Digoxin 0.125 MG TAB PO SCH (08:17)
[2019-10-27] MEDS: Simethicone Chewable 80 MG TAB PO PRN (17:14)
[2019-10-27] MEDS: Atorvastatin Calcium 10 MG TAB PO SCH (21:06)
[2019-10-28] MEDS: Mometasone/Formoterol 60 PUFF AER INH SCH ×2 (08:17→21:28)
[2019-10-28] MEDS: Gabapentin 300 MG CAP PO SCH (08:18)
[2019-10-28] MEDS: Apixaban 5 MG TAB PO SCH ×2 (08:19→21:27)
[2019-10-28] MEDS: Digoxin 0.125 MG TAB PO SCH (08:19)
[2019-10-28] MEDS: Ferrous Sulfate 325 MG TAB PO SCH ×2 (08:19→17:05)
[2019-10-28] MEDS: Magnesium Oxide 400 MG TAB PO SCH ×2 (08:19→21:29)
[2019-10-28] MEDS: Aspirin 81 mg Enteric Coated Tablet PO SCH (08:19)
[2019-10-28] MEDS: Simethicone Chewable 80 MG TAB PO PRN ×2 (08:23→21:30)
[2019-10-28] MEDS: Acetaminophen 325 MG TAB PO PRN ×2 (08:23→21:29)
[2019-10-28 16:20] LABS: Bilirubin Negative (Negative); Blood, Urine Negative (Negative); Clarity Clear (Clear); Glucose, Urine (Dipstick) Negative (Negative); Leukocyte Negative (Negative); Nitrite Negative (Negative); Protein, Urine (Dipstick) Negative (Neg-Trace); Urine Culture Reflex No No; Urobilinogen 0.2 mg/dL (Less than 2)
[2019-10-28 16:35] LABS: Bacteria/HPF Rare-Few HPF (None Seen); RBC/HPF 0-3 HPF (0-3); Squamous Epithelial 0-3 HPF (0-3); WBC/HPF 0-3 HPF (0-3)
[2019-10-28] MEDS: Atorvastatin Calcium 10 MG TAB PO SCH (21:29)
[2019-10-29 05:58] LABS: Platelet Count 462 thou/uL (130-400)
[2019-10-29 07:31] VITALS: BP 127/59; TEMP 97.2
[2019-10-29] MEDS: Mometasone/Formoterol 60 PUFF AER INH SCH (08:54)
[2019-10-29] MEDS: Ferrous Sulfate 325 MG TAB PO SCH (08:56)
[2019-10-29] MEDS: Magnesium Oxide 400 MG TAB PO SCH (08:56)
[2019-10-29] MEDS: Apixaban 5 MG TAB PO SCH (08:56)
[2019-10-29] MEDS: Aspirin 81 mg Enteric Coated Tablet PO SCH (08:56)
[2019-10-29] MEDS: Gabapentin 300 MG CAP PO SCH (08:56)
[2019-10-29] MEDS: Digoxin 0.125 MG TAB PO SCH (08:57)
--- NOTE | 2019-10-30 12:36 | DIS ---
DATE OF ADMISSION: 10/07/2019 DATE OF DISCHARGE: 10/29/2019 PRIMARY CARE PHYSICIAN: Gloria Forde MD PRIMARY DIAGNOSES: 1. Chronic atrial fibrillation. 2. Generalized weakness. SECONDARY DIAGNOSES: 1. Chronic obstructive pulmonary disease. 2. Chronic hypoxic respiratory failure. 3. Chronic diastolic heart failure. 4. Hypertension. 5. Hyperlipidemia. 6. Chronic kidney disease, stage 3. 7. Iron-deficiency anemia. 8. Depression/anxiety. DISCHARGE MEDICATIONS: 1. Digoxin 0.125 mg p.o. daily. 2. Ferrous sulfate 325 mg p.o. b.i.d. 3. Docusate 100 mg p.o. daily p.r.n. 4. Magnesium oxide 400 mg p.o. b.i.d. 5. DuoNebs 3 mL nebulization q.6 hours p.r.n. 6. Gabapentin 300 mg p.o. daily. 7. Diltiazem 240 mg p.o. daily. 8. Aspirin 81 mg p.o. daily. 9. Pravastatin 40 mg p.o. at bedtime. 10. Sertraline 150 mg p.o. daily. 11. Advair 100/50 one inhalation b.i.d. 12. Proventil inhaler one puff q.6 hours p.r.n. 13. Eliquis 2.5 mg p.o. b.i.d. DISCONTINUED MEDICATIONS: 1. Multaq 400 mg p.o. b.i.d. 2. Rivaroxaban p.o. daily. HOSPITAL COURSE: Ms. Deborah Montaño is a 69-year-old female with multiple chronic medical problems, who is initially admitted for [facility] following a hospitalization for atrial fibrillation with rapid ventricular rate. During this hospitalization, the patient progressed very well with physical therapy and occupational therapy. From cardiac standpoint, the patient was relatively stable. She was transferred to the emergency room following an episode of rapid ventricular rate that was stabilized in the emergency department and did not require acute admission. The patient did follow up with Cardiology during this hospitalization, and medication changes were made. She will follow up with EP after discharge. Of note, the patient's Xarelto was discontinued after episode of epistaxis and possible lower GI bleeding. Eliquis was started instead by Cardiology, and the patient has had no further issues with bleeding. The patient was discharged in stable condition. The patient's hemoglobin and hematocrit did trend down to and the decision was made to transfuse patient 1 unit of packed red blood cells, which she tolerated well. DISPOSITION: Stable. DISCHARGE INSTRUCTIONS: 1. Location: Home. 2. Diet: Heart healthy. 3. Activities: Ad-alina. 4. Followup: a. The patient has followup with PCP in [address] Ahn on November 06, 2019 at 2:15 p.m. c. Cardiology with Dr. Rodriguez on Saturday, November 09, 2019. d. The [facility] with [facility] and Occupational Therapy as well. Job ID: [id number]
--- NOTE | 2019-10-31 04:15 | PQF ---
[employer] Field Data Collector Crystal Reports Winform SHRUTHI Cabezas I TAWANNA BECERRA *r [id number] CLINICAL DOCUMENTATION CLARIFICATION FORM: POST DISCHARGE Addendum to original discharge summary date: ____ Late entry note date: __ Date: 10/31/2019 ATTN: TAWANNA BECERRA Please exercise your independent, professional judgment in responding to the clarification form. Clinical indicators are provided on the bottom of this form for your review Please check appropriate box(s): [ ] Protein Calorie Malnutrition: [ ] Mild [ ] Moderate [ ] Severe [ ] Other Malnutrition (please specify) __ [ x ] Underweight without malnutrition [ x ] Cachexia [ ] Other diagnosis [ ] Unable to determine In addition, please specify: Present on Admission (POA): [ x] Yes [ ] No [ ] Unable to determine CLINICAL INDICATORS - SIGNS / SYMPTOMS / LABS BMI of _19.8____ Cachetic - Documented in hand written on 10/22 PNs pg#2 Iron Deficiency anemia - Documented in H&P on 10/07 by TAWANNA BECERRA Generalized weakness - Documented in H&P on 10/07 by TAWANNA BECERRA RISK FACTORS Chronic Afib - Documented in H&P on 10/07 by TAWANNA BECERRA CKD 3 HTN CHF TREATMENT: we will also add on supplement iron and Colace - Documented in H&P on 10/07 by TAWANNA BECERRA Moderate Malnutrition (in acute illness) Energy Intake: <75% of estimated energy requirement for > 7 days Weight Loss: 1-2%/1 week; 5%/ 1 month; 7.5%/3 months Other: mild body fat loss; mild muscle mass loss; mild fluid accumulation; Severe Malnutrition (in acute illness) Energy Intake: < 50% of estimated energy requirement for > 5 days Weight Loss: >1-2%/1 week; >5%/1 month; >7.5%/3 months Other: moderate body fat loss; moderate muscle mass loss; moderate- severe fluid accumulation; measurably [employer] Field Data Collector Crystal Reports Winform Viewerreduced puddler helper strength Moderate Malnutrition (in chronic illness) Energy Intake: <75% of estimated energy requirement for >1 month Weight Loss: 5%/1 month; 7.5%/3 months; 10%/6 months; 20%/1 year Other: mild body fat loss; mild muscle mass loss; mild fluid accumulation Severe Malnutrition (in chronic illness) Energy Intake: <75% of estimated energy requirement for >1 month Weight Loss: >5%/1 month; >7.5%/3 months; >10%/6 months; >20%/1 year Other: severe body fat loss; severe muscle mass loss; severe fluid accumulation ; measurably reduced puddler helper strength (This form is maintained as a part of the permanent medical record) 2014 [employer] All Rights Reserved Alla [email or web address] [not provided] BERNARDO
== END 2019-10-29 15:05 | disposition home health service (06) | DRG 309 ==
LOC: MADMS 16:16 → UNDODISIN 10-15 12:38
PROVIDERS: ADMIT Family Medicine; ATTEND Family Medicine
DX: I48.20 Chronic atrial fibrillation, unspecified (principal); I13.0 Hypertensive heart and chronic kidney disease with heart failure and stage 1 through stage 4 chronic kidney disease, or unspecified chronic kidney disease; I50.32 Chronic diastolic (congestive) heart failure; N39.0 Urinary tract infection, site not specified; J96.11 Chronic respiratory failure with hypoxia; Z68.1 Body mass index [BMI] 19.9 or less, adult; R53.1 Weakness; N18.3 Chronic kidney disease, stage 3 (moderate); J44.9 Chronic obstructive pulmonary disease, unspecified; E78.5 Hyperlipidemia, unspecified; D50.9 Iron deficiency anemia, unspecified; F41.9 Anxiety disorder, unspecified; F32.9 Major depressive disorder, single episode, unspecified; I80.8 Phlebitis and thrombophlebitis of other sites; Z90.89 Acquired absence of other organs; Z79.899 Other long term (current) drug therapy; Z79.82 Long term (current) use of aspirin; Z87.891 Personal history of nicotine dependence; Z99.81 Dependence on supplemental oxygen; R63.6 Underweight
CPT/HCPCS: 36415; 36430; 81001; 82274; 82565; 85014; 85018; 85049; 86850; 86900; 86901; 87077; 87086; 87186; J1940; J7620; P9016

== ENCOUNTER 2019-10-15 12:47 | Emergency (ER) | payer MEDICARE, OTHER ==
[2019-10-15 13:10] LABS: #Basophils 0.2 thou/uL (0.0-0.2); #Eosinphils 0.1 thou/uL (0.0-0.7); #Lymphocytes 1.1 thou/uL (1.20-3.40); #Monocytes 1.1 thou/uL (0.11-0.59); #Neutrophils 8.3 thou/uL (1.40-6.50); %Basophils 2.2 % (0.0-1.0); %Eosinophils 0.5 % (0.0-10.0); %Monocytes 10.4 % (0.0-10.0); %Neutrophils 76.9 % (42.0-75.0); Hemoglobin 7.9 g/dL (12.0-16.0); Mean Corpuscular HGB CONC 29.2 g/dL (32.0-36.0); Mean Corpuscular Hemoglobin 29.9 pg (27.0-31.0); Mean Corpuscular Volume 102.4 fL (78.0-98.0); Mean Platelet Volume 7.1 fL (7.4-10.4); Platelet Count 404 thou/uL (130-400); RBC Distribution Width 13.6 % (11.5-14.5); Red Blood Cell (RBC) Count 2.65 mill/uL (4.20-5.40); White Blood Cell (WBC) Count 10.8 thou/uL (4.8-10.8)
--- NOTE | 2019-10-15 13:10 | RAD ---
Exam: Chest one view HISTORY:Dizziness Comparison: None FINDINGS: Lungs: Diffuse interstitial prominence, bilaterally. Cardiac silhouette:Enlarged cardiac silhouette Pulmonary vessels: Prominent pulmonary vasculature Pleural Spaces: Slight basilar pleural-based densities Pneumothorax: None There is vascular calcification Osseous abnormalities: None of acuity. IMPRESSION: Findings favor fluid overload, related to decompensated CHF. Correlate clinically.
[2019-10-15 13:14] LABS: PTT 31.8 SEC (22.9-36.1)
[2019-10-15 13:24] LABS: ALT (SGPT) 38 U/L (8-55); AST (SGOT) 24 U/L (5-34); Albumin 3.8 g/dL (3.4-4.8); Alkaline Phosphatase 70 U/L (40-110); Anion Gap 15 mmol/L (10-20); BUN (Urea Nitrogen) 28 mg/dL (9.8-20.1); Bilirubin, Total 0.4 mg/dL (0.2-1.2); Calc. Creatinine Clearance 0 mL/min (70-130); Calcium 9.5 mg/dL (7.8-10.44); Carbon Dioxide 33 mmol/L (23-31); Chloride 96 mmol/L (98-107); Estimated GFR-MDRD 55; Globulin 3.6 g/dL (2.4-3.5); Glucose 98 mg/dL (83-110); Magnesium 2.1 mg/dL (1.6-2.6); Potassium 4.9 mmol/L (3.5-5.1); Protein, Total 7.4 g/dL (6.0-8.3); Sodium 139 mmol/L (136-145)
== END 2019-10-15 14:17 | disposition short-term general hospital (02) ==
LOC: MADERS 12:47
DX: I48.91 Unspecified atrial fibrillation (principal); I11.0 Hypertensive heart disease with heart failure; I50.9 Heart failure, unspecified; D64.9 Anemia, unspecified; J44.9 Chronic obstructive pulmonary disease, unspecified; F41.9 Anxiety disorder, unspecified; F17.210 Nicotine dependence, cigarettes, uncomplicated; Z79.51 Long term (current) use of inhaled steroids; Z79.899 Other long term (current) drug therapy; Z86.73 Personal history of transient ischemic attack (TIA), and cerebral infarction without residual deficits; Z79.82 Long term (current) use of aspirin
CPT/HCPCS: 71045; 80053; 83735; 83880; 84484; 85610; 85730; 93005; 94760; 96374

== ENCOUNTER 2019-11-22 10:44 | Outpatient (CLI) | payer MEDICARE, OTHER ==
[2019-11-22 13:06] LABS: PTT 31.7 SEC (22.9-36.1); Prothrombin Time 12.9 SEC (12.0-14.7)
[2019-11-22 13:12] LABS: Hemoglobin 12.3 g/dL (12.0-16.0); Mean Corpuscular HGB CONC 28.3 g/dL (32.0-36.0); Mean Corpuscular Volume 98.8 fL (78.0-98.0); Mean Platelet Volume 7.4 fL (7.4-10.4); Platelet Count 319 thou/uL (130-400); RBC Distribution Width 13.9 % (11.5-14.5); White Blood Cell (WBC) Count 6.8 thou/uL (4.8-10.8)
[2019-11-22 13:14] LABS: Anion Gap 15 mmol/L (10-20); BUN (Urea Nitrogen) 17 mg/dL (9.8-20.1); Calc. Creatinine Clearance 0 mL/min (70-130); Calcium 9.7 mg/dL (7.8-10.44); Carbon Dioxide 35 mmol/L (23-31); Chloride 97 mmol/L (98-107); Estimated GFR-MDRD 52; Glucose 75 mg/dL (83-110); Potassium 4.2 mmol/L (3.5-5.1); Sodium 143 mmol/L (136-145)
== END 2019-11-22 10:45 | disposition home or self-care (01) ==
LOC: MADLAB 10:44
PROVIDERS: ATTEND Internal Medicine Cardiovascular Disease
DX: I48.91 Unspecified atrial fibrillation (principal)
CPT/HCPCS: 36415; 80048; 85027; 85610; 85730

== ENCOUNTER 2019-12-25 14:11 | Emergency (ER) | payer MEDICARE, OTHER ==
[2019-12-25 14:32] LABS: #Basophils 0.1 thou/uL (0.0-0.2); #Lymphocytes 1.1 thou/uL (1.20-3.40); #Monocytes 1.4 thou/uL (0.11-0.59); #Neutrophils 8.6 thou/uL (1.40-6.50); %Eosinophils 0.2 % (0.0-10.0); %Lymphocytes 9.6 % (21.0-51.0); %Monocytes 12.4 % (0.0-10.0); %Neutrophils 76.8 % (42.0-75.0); Hemoglobin 10.3 g/dL (12.0-16.0); Mean Corpuscular HGB CONC 29.3 g/dL (32.0-36.0); Mean Corpuscular Hemoglobin 27.7 pg (27.0-31.0); Mean Corpuscular Volume 94.7 fL (78.0-98.0); Mean Platelet Volume 6.9 fL (7.4-10.4); Platelet Count 289 thou/uL (130-400); RBC Distribution Width 14.9 % (11.5-14.5); Red Blood Cell (RBC) Count 3.71 mill/uL (4.20-5.40); White Blood Cell (WBC) Count 11.2 thou/uL (4.8-10.8)
[2019-12-25 14:42] LABS: INR-International Normal Ratio 1.1; PTT 29.6 SEC (22.9-36.1); Prothrombin Time 14.6 SEC (12.0-14.7)
[2019-12-25 14:54] LABS: ALT (SGPT) 37 U/L (8-55); AST (SGOT) 26 U/L (5-34); Albumin 3.8 g/dL (3.4-4.8); Alkaline Phosphatase 82 U/L (40-110); Anion Gap 14 mmol/L (10-20); BUN (Urea Nitrogen) 19 mg/dL (9.8-20.1); Bilirubin, Total 0.6 mg/dL (0.2-1.2); Calc. Creatinine Clearance 0 mL/min (70-130); Carbon Dioxide 35 mmol/L (23-31); Chloride 98 mmol/L (98-107); Estimated GFR-MDRD 66; Globulin 2.5 g/dL (2.4-3.5); Glucose 128 mg/dL (83-110); Potassium 3.6 mmol/L (3.5-5.1); Protein, Total 6.3 g/dL (6.0-8.3); Sodium 143 mmol/L (136-145)
[2019-12-25] MEDS ORDERED: Furosemide 40 MG/4 ML VIAL ONE (14:57)
--- NOTE | 2019-12-25 15:01 | RAD ---
PA AND LATERAL VIEWS OF THE CHEST: 12/25/19 HISTORY: Shortness of breath. COMPARISON: 11/26/19. The heart size is borderline. There is pulmonary vascular congestion. A left sided pacemaker device i s again seen. There are small bilateral pleural effusions. IMPRESSION: Findings are suggestive of mild CHF. POS: [facility]
[2019-12-25 15:11] LABS: CKMB 2.7 ng/mL (0-6.6)
== END 2019-12-25 15:57 | disposition home or self-care (01) ==
LOC: MADERS 14:11
DX: I11.0 Hypertensive heart disease with heart failure (principal); I50.1 Left ventricular failure, unspecified; R79.89 Other specified abnormal findings of blood chemistry; E78.5 Hyperlipidemia, unspecified; J44.9 Chronic obstructive pulmonary disease, unspecified; K21.9 Gastro-esophageal reflux disease without esophagitis; F41.9 Anxiety disorder, unspecified; Z86.73 Personal history of transient ischemic attack (TIA), and cerebral infarction without residual deficits; Z87.891 Personal history of nicotine dependence; Z79.51 Long term (current) use of inhaled steroids; Z79.82 Long term (current) use of aspirin; Z79.899 Other long term (current) drug therapy; Z79.01 Long term (current) use of anticoagulants
CPT/HCPCS: 36415; 71046; 80053; 82553; 83605; 83880; 84484; 85025; 85610; 85730; 87040; 93005; 94760; 96374; J1940

== ENCOUNTER 2020-01-11 12:17 | Emergency (ER) | payer MEDICARE, MEDICAID ==
[2020-01-11] MEDS ORDERED: Furosemide 40 MG/4 ML VIAL ONE (12:41)
[2020-01-11 12:51] LABS: #Basophils 0.1 thou/uL (0.0-0.2); #Lymphocytes 0.7 thou/uL (1.20-3.40); #Monocytes 0.9 thou/uL (0.11-0.59); #Neutrophils 7.5 thou/uL (1.40-6.50); %Basophils 1.3 % (0.0-1.0); %Eosinophils 0.2 % (0.0-10.0); %Neutrophils 80.6 % (42.0-75.0); Hemoglobin 10.6 g/dL (12.0-16.0); Mean Corpuscular HGB CONC 28.6 g/dL (32.0-36.0); Mean Corpuscular Hemoglobin 27.4 pg (27.0-31.0); Mean Corpuscular Volume 95.6 fL (78.0-98.0); Mean Platelet Volume 7.4 fL (7.4-10.4); Platelet Count 330 thou/uL (130-400); RBC Distribution Width 15.1 % (11.5-14.5); Red Blood Cell (RBC) Count 3.86 mill/uL (4.20-5.40); White Blood Cell (WBC) Count 9.3 thou/uL (4.8-10.8)
[2020-01-11 12:52] LABS: MDiff Complete? YES; Manual Diff?? NO
[2020-01-11 13:01] LABS: ALT (SGPT) 38 U/L (8-55); AST (SGOT) 41 U/L (5-34); Albumin 4.2 g/dL (3.4-4.8); Alkaline Phosphatase 83 U/L (40-110); Anion Gap 18 mmol/L (10-20); BUN (Urea Nitrogen) 12 mg/dL (9.8-20.1); Bilirubin, Total 0.8 mg/dL (0.2-1.2); Calc. Creatinine Clearance 0 mL/min (70-130); Calcium 9.5 mg/dL (7.8-10.44); Carbon Dioxide 35 mmol/L (23-31); Chloride 94 mmol/L (98-107); Estimated GFR-MDRD 66; Globulin 3.2 g/dL (2.4-3.5); Glucose 109 mg/dL (83-110); Potassium 3.3 mmol/L (3.5-5.1); Protein, Total 7.4 g/dL (6.0-8.3); Sodium 144 mmol/L (136-145)
[2020-01-11 13:19] LABS: CKMB 4.4 ng/mL (0-6.6)
[2020-01-11] MEDS ORDERED: Potassium Chloride 10 MEQ TAB ONE (13:21)
--- NOTE | 2020-01-11 13:57 | RAD ---
PORTABLE CHEST 1 VIEW: Date: 01/11/2020 Time: 1258 hours HISTORY: Dyspnea. COMPARISON: 12/25/2019. FINDINGS/IMPRESSION: The heart is enlarged. The aorta is tortuous. Left-sided pacemaker device remains in place. There is mild pulmonary vascular congestion with accompanying bilateral pleural effusions, right larger than l eft. No pneumothoraces seen. POS: [facility]
== END 2020-01-11 14:20 | disposition home or self-care (01) ==
LOC: MADERS 12:17
DX: I11.0 Hypertensive heart disease with heart failure (principal); I50.9 Heart failure, unspecified; E87.6 Hypokalemia; I48.91 Unspecified atrial fibrillation; E78.5 Hyperlipidemia, unspecified; J44.9 Chronic obstructive pulmonary disease, unspecified; F41.9 Anxiety disorder, unspecified; K21.9 Gastro-esophageal reflux disease without esophagitis; Z87.891 Personal history of nicotine dependence; Z86.73 Personal history of transient ischemic attack (TIA), and cerebral infarction without residual deficits; Z79.82 Long term (current) use of aspirin; Z79.899 Other long term (current) drug therapy
CPT/HCPCS: 36415; 71045; 80053; 82553; 83880; 84484; 85025; 93005; 96374; J1940

== ENCOUNTER 2020-04-30 14:10 | Inpatient (IN) | payer MEDICARE, MEDICAID ==
[2020-05-01] MEDS ORDERED: Acetaminophen 500 MG TAB PO PRN ×2 (02:03)
[2020-05-01 05:26] LABS: Hemoglobin 9.5 g/dL (12.0-16.0); Mean Corpuscular HGB CONC 29.9 g/dL (32.0-36.0); Mean Corpuscular Volume 96.9 fL (78.0-98.0); Mean Platelet Volume 7.5 fL (7.4-10.4); Platelet Count 556 thou/uL (130-400); RBC Distribution Width 16.1 % (11.5-14.5); Red Blood Cell (RBC) Count 3.28 mill/uL (4.20-5.40)
[2020-05-01 05:38] LABS: Anion Gap 18 mmol/L (10-20); BUN (Urea Nitrogen) 49 mg/dL (9.8-20.1); Calc. Creatinine Clearance 26 mL/min (70-130); Calcium 9.3 mg/dL (7.8-10.44); Estimated GFR-MDRD 41; Glucose 100 mg/dL (83-110)
[2020-05-01 05:46] LABS: Chloride 91 mmol/L (98-107); Potassium 3.2 mmol/L (3.5-5.1); Sodium 150 mmol/L (136-145)
[2020-05-01 05:50] LABS: %Basophils 0.6 % (0.0-1.0); %Monocytes 6.9 % (0.0-10.0); %Neutrophils 89.5 % (42.0-75.0); Manual Diff?? YES
[2020-05-01 05:51] LABS: #Basophils 0.2 thou/uL (0.0-0.2); #Monocytes 1.9 thou/uL (0.11-0.59); Lymphocytes 2 % (21-51); MDiff Complete? YES; Monocytes 3 % (0-10); Neutrophil 95 % (42-75)
[2020-05-01 05:52] LABS: Anisocytosis MODERATE=16-30 cells (100X) (0-5/hpf); Hypochromia MODERATE=16-30 cells (100X) (0-5/hpf); Ovalocytes SLIGHT = 2-5 cells (100X) (0-1/hpf)
[2020-05-01 06:25] LABS: Carbon Dioxide 45 mmol/L (23-31)
[2020-05-01] MEDS ORDERED: Potassium Chloride 20 MEQ TAB PO SCH (07:00)
[2020-05-01] MEDS ORDERED: traMADol HCl 50 MG TAB PO PRN (08:27)
[2020-05-01] MEDS ORDERED: Furosemide 80 MG TAB PO SCH (09:00)
[2020-05-01] MEDS ORDERED: predniSONE 10 MG TAB PO SCH (10:00)
[2020-05-01] MEDS: Multivitamin W/ Minerals 1 TAB PO SCH (10:17)
[2020-05-01] MEDS: Digoxin 0.125 MG TAB PO SCH (10:18)
[2020-05-01] MEDS: levETIRAcetam 500 MG TAB PO SCH ×2 (10:18→20:57)
[2020-05-01] MEDS: Magnesium Oxide 400 MG TAB PO SCH (10:19)
[2020-05-01] MEDS: Mometasone/Formoterol 60 PUFF AER INH SCH ×2 (10:19→20:57)
[2020-05-01] MEDS: Aspirin 81 mg Enteric Coated Tablet PO SCH (10:19)
[2020-05-01] MEDS: Saccharomyces boulardii 250 MG CAP PO SCH (10:24)
[2020-05-01] MEDS: Atorvastatin Calcium 10 MG TAB PO SCH (20:57)
[2020-05-01] MEDS ORDERED: Prevnar 13-Val Conj/PF 0.5 ML SYRINGE IM ONE (21:00)
[2020-05-02 06:00] LABS: Anion Gap 21 mmol/L (10-20); BUN (Urea Nitrogen) 43 mg/dL (9.8-20.1); Calc. Creatinine Clearance 29 mL/min (70-130); Estimated GFR-MDRD 46; Glucose 91 mg/dL (83-110)
[2020-05-02 06:08] LABS: Chloride 89 mmol/L (98-107); Potassium 3.4 mmol/L (3.5-5.1); Sodium 145 mmol/L (136-145)
[2020-05-02 06:13] LABS: Carbon Dioxide Greater than 37 mmol/L (23-31)
[2020-05-02] MEDS ORDERED: Potassium Chloride 20 MEQ TAB PO SCH (08:30)
[2020-05-02] MEDS ORDERED: Furosemide 40 MG TAB PO SCH (08:30)
[2020-05-02] MEDS: predniSONE 10 MG TAB PO SCH (08:54)
[2020-05-02] MEDS: Digoxin 0.125 MG TAB PO SCH (08:55)
[2020-05-02] MEDS: levETIRAcetam 500 MG TAB PO SCH ×2 (08:55→20:11)
[2020-05-02] MEDS: Aspirin 81 mg Enteric Coated Tablet PO SCH (08:55)
[2020-05-02] MEDS: Magnesium Oxide 400 MG TAB PO SCH (08:55)
[2020-05-02] MEDS: Multivitamin W/ Minerals 1 TAB PO SCH (08:55)
[2020-05-02] MEDS: Saccharomyces boulardii 250 MG CAP PO SCH (08:56)
[2020-05-02] MEDS: Mometasone/Formoterol 60 PUFF AER INH SCH ×2 (08:57→20:10)
--- NOTE | 2020-05-02 15:32 | CT ---
HEAD CT WITHOUT CONTRAST: 05/02/20 HISTORY: Subdural hematoma follow-up. COMPARISON: 04/22/20. FINDINGS: Postsurgical changes compatible with right craniotomy are redemonstrated. The degree of pneumocephalu s has essentially resolved. Minimal postsurgical changes in the overlying scalp do remain with minima l subcutaneous emphysema. There is a decreased but persistent hyperdensity along the right temporal, frontal, and parietal convexities suggesting residual subdural blood. Maximum diameter 0.5 cm. Mild e ffacement of the right temporal sulci. Cortical ovalle-white matter differentiation is preserved. 5 mm of right to left subfalcine herniation. Basilar cisterns are patent. IMPRESSION: Residual subdural blood along the right frontal temporal and parietal convexity as described above. Mild mass effect and sulcal effacement as detailed above. POS: [facility]
[2020-05-02 15:42] LABS: Anion Gap 20 mmol/L (10-20); BUN (Urea Nitrogen) 40 mg/dL (9.8-20.1); Calc. Creatinine Clearance 29 mL/min (70-130); Estimated GFR-MDRD 46; Glucose 112 mg/dL (83-110)
[2020-05-02 15:46] LABS: Carbon Dioxide 42 mmol/L (23-31); Chloride 87 mmol/L (98-107); Potassium 3.7 mmol/L (3.5-5.1); Sodium 145 mmol/L (136-145)
--- NOTE | 2020-05-02 19:05 | HP ---
HISTORY OF PRESENT ILLNESS: The patient is a 70-year-old female with a recent discharge status post ground level fall with subsequent acute right subdural hematoma. The patient also underwent a rather large frontotemporal parietal craniotomy with evacuation of the subdural hematoma on April 21, [address] Kareem Dave. The patient did well from a neurological standpoint. She also received treatment for acute congestive heart failure exacerbation with IV diuresis. She also did receive treatment for acute COPD exacerbation as well with antibiotics and steroids. At the time of discharge, patient was discharged on her normal level of supplemental oxygen. She is profoundly weak at this time. PAST MEDICAL HISTORY: 1. End-stage COPD, on chronic O2. 2. Chronic atrial fibrillation, previously on Eliquis. 3. Chronic diastolic heart failure. 4. Hypertension. 5. Hyperlipidemia. 6. Chronic malnutrition. MEDICATIONS: 1. Proventil HFA 108 mcg one puff q.4 hours p.r.n. 2. Pravastatin 40 mg p.o. daily. 3. Sertraline 150 mg p.o. daily. 4. Magnesium oxide 400 mg p.o. b.i.d. 5. Aspirin 81 mg p.o. daily. 6. Lasix 40 mg p.o. daily. 7. Advair Diskus 500-50 mcg one puff inhalation q.12 hours. 8. Fluticasone 50 mcg one spray per nostril daily. 9. Incruse Ellipta 62.5 Mcg one puff inhalation daily. 10. Cyclobenzaprine 5 mg p.o. t.i.d. p.r.n. 11. Potassium chloride 10 mEq p.o. daily. PAST SURGICAL HISTORY: 1. Bilateral carotid endarterectomy. 2. Tonsillectomy with adenoidectomy. 3. Bladder surgery. 4. Pacemaker placement. ALLERGIES: NO KNOWN DRUG ALLERGIES. SOCIAL HISTORY: The patient has a prior history of tobacco abuse. She currently lives in a trailer with a friend of hers and multiple animals. She denies any alcohol or drug use. FAMILY HISTORY: Noncontributory. REVIEW OF SYSTEMS: CONSTITUTIONAL: The patient denies fever, chills, night sweats. HEENT: The patient denies vision changes or eye pain. CARDIOVASCULAR: The patient denies shortness of breath or cough. CARDIOVASCULAR: The patient denies chest pain or palpitations. ABDOMEN: The patient denies nausea, vomiting, Diarrhea. GENITOURINARY: The patient denies dysuria, hematuria. MUSCULOSKELETAL: The patient reports weakness, but denies any muscle pain. PSYCHIATRIC: The patient denies anxiety or depression. NEUROLOGICAL: The patient denies any headache currently. SKIN: The patient denies any rashes or lesions. PHYSICAL EXAMINATION: VITAL SIGNS: Temperature 98.4, pulse 80, respirations 18, oxygen 90% on 2 L. Blood pressure 196/66. GENERAL: The patient is a chronically ill-appearing, disheveled, alert and oriented. Otherwise in no distress. HEENT: Extraocular muscles intact. Pupils equal, round, reactive to light. A rather large scalp incision to the right of midline with mariah in place. No dehiscence. Incision is clean, dry, and intact with no drainage. Dry mucous membranes. CARDIOVASCULAR: Regular rate and rhythm with no murmurs, rubs, or gallops. LUNGS: Clear to auscultation bilaterally. No wheezes, rhonchi, or crackles. EXTREMITIES: No clubbing, cyanosis, or edema. NEUROLOGICAL: Cranial nerves 2 through 12 intact grossly with no focal deficits. PSYCHIATRIC: Appropriate mood and affect. LABORATORY STUDIES: Sodium 150, potassium 3.2, chloride 91, carbon dioxide 45, BUN 49, creatinine 1.28, glucose 100. CBC: White blood cell count 28, hemoglobin 9.5, hematocrit 31.8, platelet count 556. ASSESSMENT: 1. Generalized weakness and physical deconditioning. 2. Status post ground level fall. 3. Acute subdural hematoma, status post craniectomy and hematoma evacuation. 4. History of chronic atrial fibrillation, rate controlled. 5. History of chronic diastolic congestive heart failure with no exacerbation. 6. End-stage chronic obstructive pulmonary disease, on chronic O2. 7. Contraction alkalosis with CO2 of 45. 8. Chronic iron deficiency anemia. 9. Chronic kidney disease stage 3. 10. Hypertension. 11. Hyperlipidemia. 12. History of depression. 13. Volume depletion. PLAN: We will admit patient to intermediate for physical therapy and occupational therapy for conditioning. We will encourage p.o. hydration given how long the patient in contraction alkalosis we will reduce patient's diuretics at this time. We will repeat to ensure that this is improving. Otherwise, remainder of patient's home medications will be resumed. We will also consult Speech Therapy to re-evaluate patient and give guidance on the patient's diet. We will complete the remainder of antibiotics and steroids initiated prior to the patient's previous hospitalization in the treatment of her COPD exacerbation. At this time, patient is pretty much back to baseline from a respiratory standpoint. We will correct any electrolyte abnormalities as needed. The patient is relatively stable at this time. We will also arrange for followup with Neurosurgery as well. DVT prophylaxis: SCDs and aspirin. Code status full. Job ID: [id number]
[2020-05-02] MEDS: Atorvastatin Calcium 10 MG TAB PO SCH (20:11)
[2020-05-03 06:13] LABS: Anion Gap 18 mmol/L (10-20); BUN (Urea Nitrogen) 32 mg/dL (9.8-20.1); Calc. Creatinine Clearance 35 mL/min (70-130); Calcium 8.7 mg/dL (7.8-10.44); Estimated GFR-MDRD 56; Glucose 85 mg/dL (83-110)
[2020-05-03 06:20] LABS: Carbon Dioxide Greater than 37 mmol/L (23-31); Chloride 88 mmol/L (98-107); Potassium 3.5 mmol/L (3.5-5.1); Sodium 147 mmol/L (136-145)
[2020-05-03] MEDS: Furosemide 40 MG TAB PO SCH (08:32)
[2020-05-03] MEDS: predniSONE 10 MG TAB PO SCH (08:32)
[2020-05-03] MEDS: Aspirin 81 mg Enteric Coated Tablet PO SCH (08:32)
[2020-05-03] MEDS: levETIRAcetam 500 MG TAB PO SCH ×2 (08:33→21:36)
[2020-05-03] MEDS: Digoxin 0.125 MG TAB PO SCH (08:33)
[2020-05-03] MEDS: Saccharomyces boulardii 250 MG CAP PO SCH (08:33)
[2020-05-03] MEDS: Multivitamin W/ Minerals 1 TAB PO SCH (08:34)
[2020-05-03] MEDS: Magnesium Oxide 400 MG TAB PO SCH (08:34)
[2020-05-03] MEDS: Mometasone/Formoterol 60 PUFF AER INH SCH ×2 (08:35→21:36)
[2020-05-03] MEDS: clonazePAM 0.5 MG TAB PO PRN ×2 (17:13→23:42)
[2020-05-03] MEDS: Atorvastatin Calcium 10 MG TAB PO SCH (21:36)
[2020-05-04] MEDS: Magnesium Oxide 400 MG TAB PO SCH (08:39)
[2020-05-04] MEDS: Aspirin 81 mg Enteric Coated Tablet PO SCH (08:39)
[2020-05-04] MEDS: Digoxin 0.125 MG TAB PO SCH (08:39)
[2020-05-04] MEDS: Saccharomyces boulardii 250 MG CAP PO SCH (08:39)
[2020-05-04] MEDS: clonazePAM 0.5 MG TAB PO PRN (08:40)
[2020-05-04] MEDS: Multivitamin W/ Minerals 1 TAB PO SCH (08:40)
[2020-05-04] MEDS: levETIRAcetam 500 MG TAB PO SCH ×2 (08:40→20:25)
[2020-05-04] MEDS: predniSONE 10 MG TAB PO SCH (08:40)
[2020-05-04] MEDS: Furosemide 40 MG TAB PO SCH (08:40)
[2020-05-04] MEDS: Mometasone/Formoterol 60 PUFF AER INH SCH ×2 (08:42→20:26)
[2020-05-04] MEDS ORDERED: Lorazepam 2 MG/ML VIAL ONE (10:09)
[2020-05-04] MEDS ORDERED: Lorazepam 2 MG/ML VIAL FS PRN (10:40)
[2020-05-04] MEDS ORDERED: Ondansetron ODT 4 MG TAB PO PRN (12:02)
[2020-05-04] MEDS ORDERED: Morphine 10 MG/0.5 ML ORAL SYRINGE SL PRN (12:02)
[2020-05-04] MEDS ORDERED: Ondansetron ODT 4 MG TAB SL PRN (12:15)
[2020-05-04] MEDS ORDERED: Scopolamine 1.5 mg/72 hour Patch TOP SCH (13:00)
[2020-05-04] MEDS: Atorvastatin Calcium 10 MG TAB PO SCH (20:25)
[2020-05-05] MEDS ORDERED: Acetaminophen 500 MG TAB PO PRN (08:41)
[2020-05-05] MEDS: predniSONE 10 MG TAB PO SCH (09:44)
[2020-05-05] MEDS: Furosemide 40 MG TAB PO SCH (09:44)
[2020-05-05] MEDS: levETIRAcetam 500 MG TAB PO SCH (09:44)
[2020-05-05] MEDS: Saccharomyces boulardii 250 MG CAP PO SCH (09:45)
[2020-05-05] MEDS: Digoxin 0.125 MG TAB PO SCH (09:45)
[2020-05-05] MEDS: Mometasone/Formoterol 60 PUFF AER INH SCH ×2 (09:47→21:52)
[2020-05-05 10:05] LABS: Anion Gap 17 mmol/L (10-20); BUN (Urea Nitrogen) 26 mg/dL (9.8-20.1); Calc. Creatinine Clearance 36 mL/min (70-130); Calcium 8.5 mg/dL (7.8-10.44); Estimated GFR-MDRD 59; Glucose 118 mg/dL (83-110)
[2020-05-05 10:08] LABS: Carbon Dioxide 48 mmol/L (23-31)
[2020-05-05 10:09] LABS: Chloride 86 mmol/L (98-107); Potassium 3.7 mmol/L (3.5-5.1); Sodium 147 mmol/L (136-145)
[2020-05-05] MEDS: Ipratropium Bromide 2.5 ml Neb NEB SCH (18:25)
[2020-05-05] MEDS: Lorazepam 1 MG TAB SL PRN (20:55)
[2020-05-05] MEDS ORDERED: levETIRAcetam 500 mg/5 ml Oral Solution PO SCH (21:00)
--- NOTE | 2020-05-05 21:27 | PRG ---
DATE OF PROCEDURE: 05/05/2020 SUBJECTIVE: Patient was seen and examined at the bedside. Over the weekend, the patient did have a witnessed seizure lasting approximately 1.5 minutes per nursing record. The patient did have somnolence noted and increased agitation. Of note, patient's family did change to DNR status over the weekend. Remarkably, this morning, patient was more awake and arousable. On my evaluation, patient was alert and oriented, sitting upright in bed, eating lunch. The patient also reportedly worked really well with physical therapy this morning. OBJECTIVE: VITALS: Temperature 98.2, pulse 80, respirations 18, oxygen 100% on 3 L nasal cannula, blood pressure 134/52. GENERAL: Patient is chronically ill-appearing, disheveled. Otherwise, alert and oriented x3, in no distress, at this time breathing comfortably on oxygen administered via nasal cannula. HEENT: Extraocular muscles intact. Large scalp incision to the right of midline. Karen in place. Wound is clean, dry, and intact. No drainage. Dry mucous membranes. CARDIOVASCULAR: Regular rate and rhythm. No murmurs, rubs, or gallops. LUNGS: Clear to auscultation bilaterally. No wheezes, rhonchi, or crackles. EXTREMITIES: No clubbing, cyanosis, or edema. NEUROLOGICAL: Cranial nerves 2-12 intact grossly with no focal deficits. PSYCHIATRIC: Appropriate mood and affect. LABORATORY STUDIES: Sodium 147, potassium 3.7, chloride 86, carbon dioxide 48, BUN 26, creatinine 0.93, glucose 59, calcium 8.5. CT scan obtained May 02, 2020, showed residual subdural blood along the right frontal, temporal, and parietal convexity. Mild mass effect and sulcal effacement noted. ASSESSMENT AND PLAN: 1. Acute subdural hematoma, status post craniectomy and hematoma evacuation. 2. Late onset posttraumatic seizure. 3. Generalized weakness and physical deconditioning. 4. History of chronic atrial fibrillation, currently rate controlled. 5. History of chronic diastolic congestive heart failure with no exacerbation. 6. Hypochloremic metabolic alkalosis with a carbon dioxide level of 48. 7. Chronic iron-deficiency anemia. 8. Chronic kidney disease stage 3. 9. Hypertension. 10. Hyperlipidemia. 11. Depletion. 12. History of depression. 13. We will discontinue comfort measures as the patient is progressing remarkably well at this time compared to report from over the weekend. Regarding patient's seizures, Keppra was started yesterday and patient is doing well on this. The patient has an upcoming neurosurgical appointment in 2 days. We will await recommendations from specialist. Regarding metabolic alkalosis, it was thought that this was likely related to contraction alkalosis. We will discontinue furosemide and add on spironolactone. We will continue to monitor with serial BMPs. Otherwise, remainder of patient's home medications resumed. The patient is relatively stable at this time. We will continue to monitor. 14. Deep venous thrombosis prophylaxis. SCDs. 15. Code status is currently DNR. Job ID: [id number]
[2020-05-05] MEDS: levETIRAcetam 500 mg/5 ml Oral Solution PO SCH (21:52)
[2020-05-06] MEDS: Ipratropium Bromide 2.5 ml Neb NEB SCH ×4 (00:27→18:21)
[2020-05-06 05:58] LABS: ALT (SGPT) 16 U/L (8-55); AST (SGOT) 25 U/L (5-34); Albumin 3.1 g/dL (3.4-4.8); Alkaline Phosphatase 106 U/L (40-110); Anion Gap 17 mmol/L (10-20); BUN (Urea Nitrogen) 26 mg/dL (9.8-20.1); Bilirubin, Total 0.5 mg/dL (0.2-1.2); Calc. Creatinine Clearance 38 mL/min (70-130); Calcium 8.4 mg/dL (7.8-10.44); Estimated GFR-MDRD 62; Globulin 2.5 g/dL (2.4-3.5); Glucose 87 mg/dL (83-110); Magnesium 1.2 mg/dL (1.6-2.6); Protein, Total 5.6 g/dL (6.0-8.3)
[2020-05-06 05:59] LABS: Carbon Dioxide Greater than 37 mmol/L (23-31); Chloride 83 mmol/L (98-107); Potassium 3.4 mmol/L (3.5-5.1); Sodium 144 mmol/L (136-145)
[2020-05-06] MEDS: Spironolactone 25 MG TAB PO SCH (09:00)
[2020-05-06] MEDS: levETIRAcetam 500 mg/5 ml Oral Solution PO SCH ×3 (09:00→21:54)
[2020-05-06] MEDS: Saccharomyces boulardii 250 MG CAP PO SCH (09:00)
[2020-05-06] MEDS: Digoxin 0.125 MG TAB PO SCH (09:03)
[2020-05-06] MEDS: Mometasone/Formoterol 60 PUFF AER INH SCH ×2 (09:18→20:37)
[2020-05-06] MEDS: predniSONE 10 MG TAB PO SCH (09:18)
[2020-05-06] MEDS: Lorazepam 1 MG TAB SL PRN (10:05)
[2020-05-06] MEDS ORDERED: Morphine 10 MG/0.5 ML ORAL SYRINGE SL PRN (12:51)
[2020-05-06] MEDS ORDERED: Scopolamine 1.5 mg/72 hour Patch TD SCH (14:00)
[2020-05-06] MEDS ORDERED: Scopolamine 1.5 mg/72 hour Patch TD PRN (16:48)
--- NOTE | 2020-05-06 19:09 | PRG ---
DATE OF SERVICE: 05/06/2020 SUBJECTIVE: The patient was seen and examined at the bedside. The patient was noted to have a seizure last night, witnessed seizure lasting approximately 1 minute. The patient has experienced a change in status compared to yesterday's examination. At the bedside, she currently is lethargic and slow to respond, does open her eyes and is able to give a thumbs up when asked. OBJECTIVE: VITAL SIGNS: Temperature 97.1, respirations 18, oxygen 94% on 2 L nasal cannula, blood pressure 123/67, and pulse 82. GENERAL: The patient is lethargic, lying in bed, blunt to the right side, does slowly respond to questions. HEENT: Right scalp incision clean, dry, and intact. CARDIOVASCULAR: Regular rate and rhythm. No murmurs, rubs, or gallops. LUNGS: Clear to auscultation bilaterally. ABDOMEN: Soft and nondistended. NEUROLOGIC: Cranial nerves 2 through 12 appear to be intact grossly. Apparent paralysis in the left upper extremity. The patient otherwise appears to move the remainder of her extremities. GCS 11. G3, V2, M6. LABORATORY DATA: Sodium 144, potassium 3.4, chloride 83, carbon dioxide greater than 37, BUN 26, creatinine 0.9, and glucose 87. INITIAL ASSESSMENT: 1. Change in status. 2. Acute subdural hematoma, status post craniectomy and hematoma evacuation. 3. Late onset posttraumatic seizures. 4. Generalized weakness and physical deconditioning. 5. End-stage chronic obstructive pulmonary disease. 6. History of chronic atrial fibrillation, rate controlled. 7. History of chronic diastolic congestive heart failure with no exacerbation. 8. Hypochloremic metabolic alkalosis. 9. Chronic kidney disease, stage 3. 10. Chronic iron-deficiency anemia. 11. Hypertension. 12. Hyperlipidemia. 13. Volume depletion. 14. History of depression. PLAN: With the patient's change in status, we will continue end-of-life care. I have spoken with the patient's MPOA and Radha tan, who agreed with comfort care measures. Also spoke with the patient's niece, Huong Epstein, who is also in agreement with this plan. We will resume antiemetic medications to help with respiratory distress. The patient's family has been in contact. We will allow them to be with her. We will continue to monitor the patient's status and make all attempts to keep her comfortable during this time. The patient's family also agreed and no further medical interventions at this time. Job ID: [id number]
[2020-05-06] MEDS: Morphine 10 MG/0.5 ML ORAL SYRINGE SL PRN (20:40)
[2020-05-07] MEDS: Ipratropium Bromide 2.5 ml Neb NEB SCH ×4 (00:04→19:27)
[2020-05-07] MEDS: Morphine 10 MG/0.5 ML ORAL SYRINGE SL PRN ×2 (04:53→10:55)
[2020-05-07] MEDS: Spironolactone 25 MG TAB PO SCH (10:10)
[2020-05-07] MEDS: Digoxin 0.125 MG TAB PO SCH (10:11)
[2020-05-07] MEDS: levETIRAcetam 500 mg/5 ml Oral Solution PO SCH ×2 (10:13→21:34)
[2020-05-07] MEDS: Mometasone/Formoterol 60 PUFF AER INH SCH ×2 (10:15→21:41)
[2020-05-07] MEDS: Saccharomyces boulardii 250 MG CAP PO SCH (10:20)
[2020-05-08] MEDS: Ipratropium Bromide 2.5 ml Neb NEB SCH ×4 (00:20→18:24)
[2020-05-08] MEDS: Morphine 10 MG/0.5 ML ORAL SYRINGE SL PRN ×2 (05:13→12:26)
[2020-05-08] MEDS: Digoxin 0.125 MG TAB PO SCH (09:46)
[2020-05-08] MEDS: Spironolactone 25 MG TAB PO SCH (09:46)
[2020-05-08] MEDS: levETIRAcetam 500 mg/5 ml Oral Solution PO SCH ×2 (09:47→21:59)
[2020-05-08] MEDS: Mometasone/Formoterol 60 PUFF AER INH SCH ×2 (09:48→21:58)
[2020-05-08] MEDS: Saccharomyces boulardii 250 MG CAP PO SCH (10:00)
[2020-05-08] MEDS: Lorazepam 1 MG TAB SL PRN (12:26)
[2020-05-08] MEDS ORDERED: Lorazepam 1 MG TAB FS PRN (12:55)
[2020-05-08 13:05] VITALS: BMI 14.2
[2020-05-08] MEDS: Sodium Chloride For Inhalation 0.9% 3 ML NEB NEB PRN ×2 (13:55→21:54)
[2020-05-08] MEDS: Lorazepam 2 MG/ML VIAL FS PRN ×2 (13:59→21:56)
--- NOTE | 2020-05-08 19:02 | PRG ---
DATE OF SERVICE: 05/08/2020 SUBJECTIVE: The patient was seen and examined at the bedside. The patient has had multiple seizures throughout the night including one seizure witnessed by me during today's examination. Each seizure appears to be lasting less than 30 seconds at a time and/or generalized in nature. OBJECTIVE: VITAL SIGNS: Temperature 98.3, pulse 80, respirations 12, and oxygen 100% on 6 L nasal cannula. GENERAL: The patient is somnolent on my examination, but arousable and maintains eye contact and follow commands. HEENT: Right scalp incision clean, dry, intact. CARDIOVASCULAR: Regular rate and rhythm with a 3/6 systolic murmur heard. Otherwise, no gallops heard. LUNGS: Clear to auscultation bilaterally. ABDOMEN: Soft and nondistended. NEUROLOGIC: Dense hemiparesis of the left side. GCS score of 11, E4, V1, M6. SKIN: No lesions noted. ASSESSMENT: 1. Comfort care. 2. History of acute subdural hematoma, status post craniectomy and hematoma evacuation. 3. Late onset posttraumatic seizures. 4. Generalized weakness and physical deconditioning. 5. End-stage chronic obstructive pulmonary disease, on chronic oxygen. 6. Chronic atrial fibrillation, rate controlled. 7. History of chronic diastolic congestive heart failure. 8. History of hypochloremic metabolic alkalosis. 9. Chronic kidney disease, stage 3. 10. Chronic iron-deficiency anemia. 11. Hypertension. 12. Hyperlipidemia. 13. History of depression. 14. Dense left hemiparesis. PLAN: We will continue comfort care measures. The patient is not having any respiratory distress currently on my examination; however, Roxanol has been ordered to assist with any respiratory distress. Regarding the patient's seizures, we will add on nebulized Ativan to be given every 4 hours as needed. We will continue transdermal scopolamine to assist with secretions. We will continue to monitor the patient's status and make all attempts to keep her comfortable. We will continue to monitor. Job ID: [id number]
[2020-05-09] MEDS: Ipratropium Bromide 2.5 ml Neb NEB SCH ×4 (00:57→18:28)
[2020-05-09] MEDS: Sodium Chloride For Inhalation 0.9% 3 ML NEB NEB PRN ×2 (07:53→12:00)
[2020-05-09] MEDS: Lorazepam 2 MG/ML VIAL FS PRN ×2 (07:53→12:00)
[2020-05-09] MEDS: Saccharomyces boulardii 250 MG CAP PO SCH (09:42)
[2020-05-09] MEDS: levETIRAcetam 1,000 MG in Sodium Chloride 0.9% 100 ML IVPB SCH ×2 (09:42→11:54)
[2020-05-09] MEDS: Spironolactone 25 MG TAB PO SCH (09:43)
[2020-05-09] MEDS: levETIRAcetam 500 mg/5 ml Oral Solution PO SCH (09:43)
[2020-05-09] MEDS: Mometasone/Formoterol 60 PUFF AER INH SCH (09:43)
[2020-05-09] MEDS: Digoxin 0.125 MG TAB PO SCH (09:59)
[2020-05-09] MEDS ORDERED: levETIRAcetam In NaCl (Iso-Os) 1,000 MG in Premix Bag 1 BAG IVPB SCH ×2 (10:00→21:00)
[2020-05-09] MEDS: Acetaminophen 650 MG Suppository PR PRN ×2 (11:48→16:40)
[2020-05-09] MEDS ORDERED: Digoxin 0.5 MG/2 ML AMP SLOW IVP SCH ×2 (13:15→15:00)
[2020-05-09] MEDS ORDERED: Dexamethasone 4 mg/ml Vial SLOW IVP SCH (15:15)
[2020-05-09] MEDS ORDERED: Lorazepam 2 MG/ML VIAL IVPB PRN (15:37)
--- NOTE | 2020-05-09 18:47 | PRG ---
DATE OF SERVICE: 05/09/2020 SUBJECTIVE: The patient continues to have multiple seizures throughout the night, each lasting approximately 30 to 50 seconds. She has had a couple of seizures today. Seizures appear to be generalized in nature. Due to the patient's decreased responsiveness, she has not been able to take p.o. medications as effectively. OBJECTIVE: VITAL SIGNS: Temperature 100.2, pulse 79, respirations 24, oxygen 93% on 5 L, blood pressure 182/85. Of note, these vitals were taken immediately after a seizure. GENERAL: The patient is no longer spontaneously responsive. She does have spontaneous eye movements, does not maintain eye contact, and is no longer following commands. HEENT: Bilateral dilated pupils, nonreactive to light. CARDIOVASCULAR: Regular rate and rhythm. 3/6 systolic murmur heard. LUNGS: Decreased air entry diffusely. NEUROLOGIC: The patient is beginning to show contractures in the left upper extremity. Positive Babinski reflex noted. ASSESSMENT AND PLAN: 1. Comfort care. 2. History of acute subdural hematoma, status post craniectomy and hematoma evacuation. 3. Late onset posttraumatic seizures. 4. Likely right-sided cerebrovascular accident. 5. End-stage chronic obstructive pulmonary disease, on chronic O2. 6. Chronic atrial fibrillation, rate controlled. 7. History of chronic diastolic congestive heart failure. 8. History of hypochloremic metabolic alkalosis secondary to above. 9. Chronic kidney disease stage 3. 10. Chronic iron-deficiency anemia. 11. Hypertension. 12. Hyperlipidemia. 13. History of depression. PLAN: Continue comfort care measures. We will add an IV for the patient, antiseizure medications can be administered IV. We will also add on Decadron daily to help with any cerebral edema and also help to control seizure activity. We will continue Ativan and will administer this to the IV as needed. Continue Roxanol for any upper respiratory distress. The patient's family has been notified regarding the patient's continued decline. They were advised, we will continue to make her comfortable with the above measures. I will be signing out the patient to Dr. Robin, who will be clinical admissions manager and is covering over the weekend. We will continue to keep the family informed of the patient's status as it changes. Job ID: [id number]
[2020-05-09] MEDS ORDERED: LEVETIRACETAM IVPB SCH (21:00)
[2020-05-09] MEDS ORDERED: levETIRAcetam 1,000 MG in Sodium Chloride 0.9% 100 ML IVPB SCH (21:00)
[2020-05-09] MEDS ORDERED: NACL IVPB SCH (21:00)
[2020-05-09] MEDS: levETIRAcetam In NaCl (Iso-Os) 1,000 MG in Premix Bag 1 BAG IVPB SCH (21:14)
[2020-05-10] MEDS: Ipratropium Bromide 2.5 ml Neb NEB SCH ×4 (00:06→17:48)
[2020-05-10] MEDS: Acetaminophen 650 MG Suppository PR PRN ×2 (00:07→22:13)
[2020-05-10] MEDS: Artificial Tear Sol 15 ML BOT EA EYE PRN ×2 (01:44→09:38)
[2020-05-10] MEDS: Lorazepam 2 MG/ML VIAL SLOW IVP PRN ×2 (02:58→09:33)
[2020-05-10] MEDS ORDERED: Digoxin 0.5 MG/2 ML AMP SLOW IVP SCH (09:00)
[2020-05-10] MEDS: Digoxin 0.5 MG/2 ML AMP SLOW IVP SCH (09:22)
[2020-05-10] MEDS: Dexamethasone 4 mg/ml Vial SLOW IVP SCH (09:27)
[2020-05-10] MEDS: levETIRAcetam In NaCl (Iso-Os) 1,000 MG in Premix Bag 1 BAG IVPB SCH ×2 (09:32→22:11)
[2020-05-11] MEDS: Ipratropium Bromide 2.5 ml Neb NEB SCH ×2 (00:35→05:35)
[2020-05-11] MEDS: Lorazepam 2 MG/ML VIAL SLOW IVP PRN (05:30)
[2020-05-11 06:50] VITALS: BP 50/35; TEMP 97.6
[2020-05-11] MEDS: Digoxin 0.5 MG/2 ML AMP SLOW IVP SCH (08:29)
[2020-05-11] MEDS: Dexamethasone 4 mg/ml Vial SLOW IVP SCH (08:29)
[2020-05-11] MEDS: levETIRAcetam In NaCl (Iso-Os) 1,000 MG in Premix Bag 1 BAG IVPB SCH (08:30)
--- NOTE | 2020-05-12 15:14 | DIS ---
DATE OF ADMISSION: 04/30/2020 DATE OF DISCHARGE: 05/11/2020 DATE OF : 05/11/2020. ATTENDING/PCP: Dr. Forde. FINAL DIAGNOSES: 1. New onset seizure. 2. Acute subdural hematoma status post craniectomy and hematoma evacuation. 3. Chronic diastolic heart failure. 4. End stage chronic obstructive pulmonary disease. 5. Chronic atrial fibrillation. 6. Atherosclerotic hypertensive disease.. 7. Hyperlipidemia. 8. Chronic kidney disease stage 3. 9. Adult failure to thrive. 10.Chronic iron deficiency anemia. HISTORY OF PRESENT ILLNESS AND HOSPITAL COURSE: The patient is a 70-year-old with recent hospitalization secondary to acute right subdural hematoma post ground level fall. She underwent a large frontotemporal parietal craniotomy with evacuation of the subdural hematoma on April 21, 2020, by Dr. Dave. The patient did well postoperatively from a neurological standpoint. Comorbidities at that time include acute congestive heart failure exacerbation with IV diureses, acute COPD exacerbation with antibiotics and steroids and was then subsequently transferred to [facility] for skilled rehab secondary to patient was reported to be profoundly weak and not appropriate to go back home. At the SNF, the patient markedly declined over the first few days of rehab and developed a new onset of witnessed minimal seizures, increasing agitation and somnolence. The family then decided on 05/05/2020 for no aggressive management, but comfort care only. Her code status was changed to DNAR. Subsequently the patient was then started on IV anticonvulsant as she was unable to tolerate oral intake at all. She continuously declined in both physical and cognitive status. She stopped eating and remained comatose. Family/RP was contact with PCP/Attending physician, Dr Forde and was aware of the patient's poor manager intermediate prognosis and was comfortable with comfort measures and symptomatic care. On 05/11/2020, The patient was pronounced at 0810 hours. Job ID: [id number] [id number]
== END 2020-05-11 08:10 | disposition expired | DRG 947 ==
LOC: MADMS 23:15
PROVIDERS: ADMIT Family Medicine; ATTEND Family Medicine
DX: R53.1 Weakness (principal); I63.9 Cerebral infarction, unspecified; G93.6 Cerebral edema; I48.20 Chronic atrial fibrillation, unspecified; I50.32 Chronic diastolic (congestive) heart failure; I13.0 Hypertensive heart and chronic kidney disease with heart failure and stage 1 through stage 4 chronic kidney disease, or unspecified chronic kidney disease; R56.1 Post traumatic seizures; E87.3 Alkalosis; G81.94 Hemiplegia, unspecified affecting left nondominant side; Z68.1 Body mass index [BMI] 19.9 or less, adult; J44.9 Chronic obstructive pulmonary disease, unspecified; R53.81 Other malaise; Z51.5 Encounter for palliative care; Z66 Do not resuscitate; N18.3 Chronic kidney disease, stage 3 (moderate); E78.5 Hyperlipidemia, unspecified; D50.9 Iron deficiency anemia, unspecified; F32.9 Major depressive disorder, single episode, unspecified; E86.9 Volume depletion, unspecified; R62.7 Adult failure to thrive; R56.9 Unspecified convulsions; R40.0 Somnolence; R45.1 Restlessness and agitation; Z79.01 Long term (current) use of anticoagulants; Z79.82 Long term (current) use of aspirin; Z90.89 Acquired absence of other organs; Z95.0 Presence of cardiac pacemaker; Z79.51 Long term (current) use of inhaled steroids; Z87.891 Personal history of nicotine dependence
CPT/HCPCS: 36415; 70450; 80048; 80053; 83735; 83880; 85025; 94640; 94664; J1100; J1160; J1953; J2060; J7512; J7620